=== PATIENT | male | born 1960 | race African-American/Black ===

== ENCOUNTER 2018-05-24 12:25 | Emergency (ER) | payer MEDICAID ==
[~2018-05-24] VITALS: Ht 167.6 cm; Wt 121.0 kg
[~2018-05-24 12:25] MED LIST: ACET-3161; CELEBREX; GABAPENTIN; GEODON; GLUCOPHAGE; INSASP; LASIX; PROZAC; TRAZODONE; VISTARIL
[2018-05-24] MEDS ORDERED: SODIUM CHLORIDE 0.9% 1,000 ML IV ONE (12:56)
[2018-05-24 13:25] LABS: BASOPHILS % 0.5 % (0.0-2.0); EOSINOPHILS % 3.4 % (0.0-5.0); HEMATOCRIT. 44.2 % (42.0-52.0); HEMOGLOBIN. 15.3 g/dL (14.0-18.0); LYMPHOCYTES % 26.7 % (20.0-50.0); MEAN CORPUSCULAR HEMOGLOBIN 30.5 pg (28.0-32.0); MEAN CORPUSCULAR VOLUME 88.2 fL (80.0-94.0); MEAN PLATELET VOLUME 9.1 fl (7.4-10.4); MONOCYTES % 9.1 % (2.0-8.0); NEUTROPHILS % 60.3 % (40.0-76.0); PLATELET 172 x1000/uL (130-400); RED BLOOD CELL COUNT 5.01 mill/uL (4.7-6.1); RED CELL DISTRIBUTION WIDTH 14.1 % (11.6-14.6)
[2018-05-24 13:31] LABS: CHLORIDE 97 mEq/L (98-107)
[2018-05-24 13:37] LABS: BETA HYDROXYBUTYRATE 0.1 mMol/L (0.0-0.3)
[2018-05-24] MEDS ORDERED: POTASSIUM CHLORIDE 20MEQ TABLET SR PO ONE (15:15)
[2018-05-24] MEDS ORDERED: POTASSIUM CHLORIDE 20MEQ TABLET SR PO NR (15:30)
[2018-05-24 17:10] VITALS: BP 133/67
== END 2018-05-24 18:04 | disposition home or self-care (01) ==
LOC: ER 12:25
DX: R22.42 Localized swelling, mass and lump, left lower limb (principal); R73.9 Hyperglycemia, unspecified; Z88.0 Allergy status to penicillin; Z79.899 Other long term (current) drug therapy
CPT/HCPCS: 36415; 80053; 82010; 82962; 85025; 93970; 99285; J7030

== ENCOUNTER 2018-12-31 14:28 | Inpatient (IN) | payer MEDICAID ==
[~2018-12-31] VITALS: Ht 177.8 cm; Wt 126.1 kg
[2018-12-31] MEDS ORDERED: CLINDAMYCIN 600 MG in DEXTROSE 5% WATER 50 ML IV ONE (16:00)
[2018-12-31 16:24] LABS: BASOPHILS % 0.4 % (0.0-2.0); EOSINOPHILS % 2.7 % (0.0-5.0); HEMATOCRIT. 41.1 % (42.0-52.0); HEMOGLOBIN. 14.3 g/dL (14.0-18.0); LYMPHOCYTES % 31.2 % (20.0-50.0); MEAN CORPUSCULAR HEMOGLOBIN 30.4 pg (28.0-32.0); MEAN CORPUSCULAR VOLUME 87.4 fL (80.0-94.0); MEAN PLATELET VOLUME 8.3 fl (7.4-10.4); NEUTROPHILS % 57.7 % (40.0-76.0); PLATELET 168 x1000/uL (130-400); RED BLOOD CELL COUNT 4.71 mill/uL (4.7-6.1); RED CELL DISTRIBUTION WIDTH 13.5 % (11.6-14.6)
[2018-12-31 16:30] LABS: CHLORIDE 104 mEq/L (98-107)
[2018-12-31] MEDS ORDERED: ZOLPIDEM TARTRATE 5MG TABLET PO PRN (19:45)
[2018-12-31] MEDS ORDERED: ONDANSETRON HCL 4MG/2ML INJ IV PRN (19:45)
[2018-12-31] MEDS ORDERED: CLONIDINE 0.1MG TABLET PO PRN (19:45)
[2018-12-31] MEDS ORDERED: DEXTROSE 50% WATER 50ML SYRINGE IV PRN (19:45)
[2018-12-31 21:15] VITALS: BP 150/90
[2018-12-31 21:45] VITALS: BP 150/90
[2018-12-31] MEDS ORDERED: INSULIN GLARGINE UD 100 UNITS/ML SYR SUBCUT SCH ×2 (22:00→23:00)
[2018-12-31] MEDS: INSULIN LISPRO 100 UNITS/ML SUBCUT SCH (22:00)
[2018-12-31] MEDS: BLOOD SUGAR DIAGNOSTIC STRIP TEST SCH (22:00)
[2019-01-01] VITALS: BP 126/81
[2019-01-01] MEDS: CLINDAMYCIN 600 MG in SODIUM CHLORIDE 0.9% 50 ML IV SCH ×2 (01:00→01:33)
[2019-01-01 04:00] VITALS: BP 118/73
[2019-01-01 06:28] LABS: BASOPHILS % 0.2 % (0.0-2.0); EOSINOPHILS % 3.3 % (0.0-5.0); HEMATOCRIT. 39.2 % (42.0-52.0); HEMOGLOBIN. 13.5 g/dL (14.0-18.0); LYMPHOCYTES % 35.7 % (20.0-50.0); MEAN CORPUSCULAR HEMOGLOBIN 30.4 pg (28.0-32.0); MEAN CORPUSCULAR VOLUME 88.2 fL (80.0-94.0); MEAN PLATELET VOLUME 8.3 fl (7.4-10.4); MONOCYTES % 8.2 % (2.0-8.0); NEUTROPHILS % 52.6 % (40.0-76.0); PLATELET 160 x1000/uL (130-400); RED BLOOD CELL COUNT 4.45 mill/uL (4.7-6.1); RED CELL DISTRIBUTION WIDTH 13.4 % (11.6-14.6)
[2019-01-01 06:46] LABS: CHLORIDE 105 mEq/L (98-107)
[2019-01-01] MEDS: GABAPENTIN 300MG CAPSULE PO SCH ×3 (07:33→21:31)
[2019-01-01] MEDS: BLOOD SUGAR DIAGNOSTIC STRIP TEST SCH ×4 (07:38→21:30)
[2019-01-01] MEDS ORDERED: HYDR50CA MT (07:50)
[2019-01-01] MEDS ORDERED: TRAZ150T78 MT (07:50)
[2019-01-01] MEDS ORDERED: VICTOZA (07:50)
[2019-01-01] MEDS ORDERED: NAPR500T7 PO (07:50)
[2019-01-01] MEDS ORDERED: FURO40TA5 MT (07:50)
[2019-01-01] MEDS ORDERED: FERR325T6 MT (07:50)
[2019-01-01] MEDS ORDERED: POLY17PO3 MT (07:50)
[2019-01-01] MEDS ORDERED: PREG75CA PO (07:50)
[2019-01-01] MEDS ORDERED: ZIPR40CA2 PO (07:50)
[2019-01-01] MEDS ORDERED: METF-416 PO (07:50)
[2019-01-01] MEDS ORDERED: LOSA1TAB40 PO (07:50)
[2019-01-01] MEDS ORDERED: FLUO40CA49 MT (07:50)
[2019-01-01 08:00] VITALS: BP 151/88
[2019-01-01] MEDS: INSULIN LISPRO 100 UNITS/ML SUBCUT SCH ×3 (08:42→18:10)
[2019-01-01] MEDS: CLINDAMYCIN 600MG PREMIX 50 ML IV SCH ×3 (08:58→23:52)
[2019-01-01 11:27] VITALS: BP 126/74
[2019-01-01 15:33] VITALS: BP 131/79
[2019-01-01 20:00] VITALS: BP 135/79
[2019-01-01] MEDS: INSULIN GLARGINE UD 100 UNITS/ML SYR SUBCUT SCH (21:32)
[2019-01-02] VITALS: BP 120/68
[2019-01-02] MEDS: INSULIN LISPRO 100 UNITS/ML SUBCUT SCH ×5 (00:03→21:05)
[2019-01-02 04:00] VITALS: BP 143/60
[2019-01-02] MEDS: GABAPENTIN 300MG CAPSULE PO SCH ×3 (06:24→21:04)
[2019-01-02] MEDS: BLOOD SUGAR DIAGNOSTIC STRIP TEST SCH ×4 (06:24→20:47)
[2019-01-02 08:00] VITALS: BP 107/62
[2019-01-02] MEDS: ACETAMINOPHEN 325MG TABLET PO PRN ×2 (08:09→11:16)
[2019-01-02] MEDS: CLINDAMYCIN 600MG PREMIX 50 ML IV SCH ×3 (08:12→23:41)
[2019-01-02] MEDS: INSULIN GLARGINE UD 100 UNITS/ML SYR SUBCUT SCH ×2 (11:12→21:27)
[2019-01-02 11:54] VITALS: BP 140/74
[2019-01-02 16:00] VITALS: BP 149/90
[2019-01-02 20:00] VITALS: BP 128/70
[2019-01-03] VITALS: BP 133/64
[2019-01-03 04:00] VITALS: BP 138/68
[2019-01-03] MEDS: BLOOD SUGAR DIAGNOSTIC STRIP TEST SCH ×3 (06:36→17:50)
[2019-01-03] MEDS: GABAPENTIN 300MG CAPSULE PO SCH ×2 (06:36→14:46)
[2019-01-03 07:07] LABS: CHLORIDE 110 mEq/L (98-107)
[2019-01-03 07:57] LABS: BASOPHILS % 0.2 % (0.0-2.0); EOSINOPHILS % 2.7 % (0.0-5.0); HEMOGLOBIN. 13.2 g/dL (14.0-18.0); LYMPHOCYTES % 36.4 % (20.0-50.0); MEAN CORPUSCULAR HEMOGLOBIN 30.1 pg (28.0-32.0); MEAN CORPUSCULAR VOLUME 89.2 fL (80.0-94.0); MEAN PLATELET VOLUME 8.8 fl (7.4-10.4); MONOCYTES % 8.1 % (2.0-8.0); NEUTROPHILS % 52.6 % (40.0-76.0); PLATELET 147 x1000/uL (130-400); RED BLOOD CELL COUNT 4.37 mill/uL (4.7-6.1); RED CELL DISTRIBUTION WIDTH 13.6 % (11.6-14.6)
[2019-01-03] MEDS: CLINDAMYCIN 600MG PREMIX 50 ML IV SCH (07:57)
[2019-01-03 08:00] VITALS: BP 124/78
[2019-01-03] MEDS: INSULIN LISPRO 100 UNITS/ML SUBCUT SCH ×3 (08:15→17:56)
[2019-01-03] MEDS: INSULIN GLARGINE UD 100 UNITS/ML SYR SUBCUT SCH (09:26)
[2019-01-03 12:00] VITALS: BP 165/86
[2019-01-03] MEDS ORDERED: SODIUM BICARBONATE 4% (2.4MEQ) 5ML VIAL IV ONE (13:00)
[2019-01-03] MEDS ORDERED: LIDOCAINE HCL 1% 20ML VIAL (Pyxis) INJ ONE (13:01)
[2019-01-03 14:23] VITALS: BP 165/86
[2019-01-03] MEDS ORDERED: DIPHENHYDRAMINE 50MG/ML VIAL IV PRN (15:45)
[2019-01-03 16:00] VITALS: BP 138/78
[2019-01-03] MEDS ORDERED: CEFTRIAXONE 2 G in DEXTROSE 5% WATER 50 ML IV SCH (17:00)
[2019-01-03] MEDS ORDERED: INSULIN GLARGINE UD 100 UNITS/ML SYR SUBCUT SCH (22:00)
[2019-01-04] MEDS ORDERED: CLINDAMYCIN 600 MG in DEXTROSE 5% WATER 50 ML IV SCH ×2
== END 2019-01-03 21:20 | disposition home health service (06) | DRG 317 ==
LOC: ER 14:28 → 6EST 18:26 → EDBEDREQ 18:31 → ENRESERV 20:28
PROVIDERS: ADMIT Internal Medicine; ATTEND Internal Medicine
PROC: 0LBV0ZZ Excision of Right Foot Tendon, Open Approach (ICD-10-PCS; principal; 2019-01-03)
PROC: 02HV33Z Insertion of Infusion Device into Superior Vena Cava, Percutaneous Approach (ICD-10-PCS; 2019-01-03)
PROC: B548ZZA Ultrasonography of Superior Vena Cava, Guidance (ICD-10-PCS; 2019-01-03)
PROC: B5181ZA Fluoroscopy of Superior Vena Cava using Low Osmolar Contrast, Guidance (ICD-10-PCS; 2019-01-03)
DX: E11.69 Type 2 diabetes mellitus with other specified complication (principal); M86.8X7 Other osteomyelitis, ankle and foot; E11.22 Type 2 diabetes mellitus with diabetic chronic kidney disease; E11.621 Type 2 diabetes mellitus with foot ulcer; E11.40 Type 2 diabetes mellitus with diabetic neuropathy, unspecified; E11.51 Type 2 diabetes mellitus with diabetic peripheral angiopathy without gangrene; E11.65 Type 2 diabetes mellitus with hyperglycemia; F32.9 Major depressive disorder, single episode, unspecified; L97.516 Non-pressure chronic ulcer of other part of right foot with bone involvement without evidence of necrosis; I12.9 Hypertensive chronic kidney disease with stage 1 through stage 4 chronic kidney disease, or unspecified chronic kidney disease; N18.2 Chronic kidney disease, stage 2 (mild); E66.01 Morbid (severe) obesity due to excess calories; Z87.891 Personal history of nicotine dependence; Z88.0 Allergy status to penicillin; Z79.4 Long term (current) use of insulin; Z79.899 Other long term (current) drug therapy; Z71.3 Dietary counseling and surveillance; Z68.39 Body mass index [BMI] 39.0-39.9, adult
CPT/HCPCS: 36415; 36569; 36573; 73630; 73721; 80048; 82962; 83036; 87070; 87077; 87186; 93923; 93970; 96365; 96367; 96372; 99285; C1725; J0696; J1815; J3490; J7040; J7060

== ENCOUNTER 2020-01-09 12:48 | Inpatient (IN) | payer MEDICAID ==
[~2020-01-09] VITALS: Ht 175.3 cm; Wt 117.9 kg
[~2020-01-09 12:48] MED LIST changes: +FERR325T6 MT; +FLUO40CA49 MT; +FURO40TA5 MT; +HYDR50CA MT; +LOSA1TAB40 PO; +METF-416 PO; +NAPR500T7 PO; +POLY17PO3 MT; +PREG75CA PO; +TRAZ150T78 MT; +VICTOZA; +ZIPR40CA2 PO
[2020-01-09] MEDS ORDERED: SODIUM CHLORIDE 0.9% 1,000 ML IV ONE (13:50)
[2020-01-09 14:12] LABS: BASOPHILS % 0.2 % (0.0-2.0); EOSINOPHILS % 1.4 % (0.0-5.0); HEMATOCRIT. 38.4 % (42.0-52.0); HEMOGLOBIN. 13.3 g/dL (14.0-18.0); LYMPHOCYTES % 22.3 % (20.0-50.0); MEAN CORPUSCULAR HEMOGLOBIN 30.1 pg (28.0-32.0); MEAN PLATELET VOLUME 8.4 fl (7.4-10.4); MONOCYTES % 6.8 % (2.0-8.0); NEUTROPHILS % 69.3 % (40.0-76.0); PLATELET 262 x1000/uL (130-400); RED BLOOD CELL COUNT 4.41 mill/uL (4.7-6.1); RED CELL DISTRIBUTION WIDTH 14.3 % (11.6-14.6)
[2020-01-09 14:19] LABS: CHLORIDE 99 mEq/L (98-107)
[2020-01-09] MEDS: VANCOMYCIN 1 G PREMIX 200 ML IV SCH (14:24)
[2020-01-09 14:29] LABS: PARTIAL THROMBOPLASTIN TIME 43.4 sec (23.4-31.0)
[2020-01-10] MEDS ORDERED: DEXTROSE 50% WATER 50ML SYRINGE IV PRN (12:45)
[2020-01-10] MEDS ORDERED: ONDANSETRON HCL 4MG/2ML INJ IV PRN (12:45)
[2020-01-10] MEDS ORDERED: ACETAMINOPHEN 325MG TABLET PO PRN (12:45)
[2020-01-10] MEDS ORDERED: BLOOD SUGAR DIAGNOSTIC STRIP TEST SCH (13:00)
[2020-01-10] MEDS: VANCOMYCIN 1 G PREMIX 200 ML IV SCH (14:00)
[2020-01-10] MEDS: BLOOD SUGAR DIAGNOSTIC STRIP TEST SCH ×3 (15:39→21:01)
[2020-01-10] MEDS: INSULIN LISPRO 100 UNITS/ML SUBCUT SCH ×2 (15:40→18:20)
[2020-01-10 21:50] VITALS: BP 123/79
[2020-01-11] VITALS: BP 131/71
[2020-01-11] MEDS ORDERED: VANCOMYCIN 1500MG in DEXTROSE 5% WATER 250ML IV SCH ×2
[2020-01-11 04:00] VITALS: BP 117/73
[2020-01-11] MEDS: BLOOD SUGAR DIAGNOSTIC STRIP TEST SCH ×4 (06:29→17:39)
[2020-01-11 08:00] VITALS: BP 121/70
[2020-01-11] MEDS: INSULIN LISPRO 100 UNITS/ML SUBCUT SCH ×4 (09:46→21:55)
[2020-01-11 12:00] VITALS: BP 118/71
[2020-01-11] MEDS ORDERED: VANCOMYCIN 750 MG PREMIX 150 ML IV SCH (12:00)
[2020-01-11] MEDS ORDERED: VANCOMYCIN 1 G PREMIX 200 ML IV SCH ×2 (12:00→15:30)
[2020-01-11] MEDS: INSULIN GLARGINE UD 100 UNITS/ML SYR SUBCUT SCH ×2 (14:03→21:59)
[2020-01-11 20:00] VITALS: BP 134/84
[2020-01-12] VITALS: BP 105/61
[2020-01-12] MEDS: CLINDAMYCIN 300 MG in DEXTROSE 5% WATER 50 ML IV SCH ×2 (02:31→09:24)
[2020-01-12 04:00] VITALS: BP 115/63
[2020-01-12] MEDS: BLOOD SUGAR DIAGNOSTIC STRIP TEST SCH ×2 (06:42→12:22)
[2020-01-12 06:44] LABS: CHLORIDE 105 mEq/L (98-107)
[2020-01-12] MEDS: INSULIN LISPRO 100 UNITS/ML SUBCUT SCH ×2 (07:41→12:22)
[2020-01-12 08:00] VITALS: BP 130/73
[2020-01-12] MEDS: INSULIN GLARGINE UD 100 UNITS/ML SYR SUBCUT SCH (10:00)
[2020-01-12] MEDS ORDERED: IODIXANOL 320MG/ML 100 ML BOTTLE IV ONE (12:13)
[2020-01-12] MEDS ORDERED: LIDOCAINE HCL 1% 20ML VIAL (Pyxis) INJ ONE (12:13)
[2020-01-12] MEDS ORDERED: MIDAZOLAM HCL 2 MG/2 ML VIAL ONE (12:28)
[2020-01-12] MEDS ORDERED: FENTANYL CITRATE/PF 50MCG/ML 2ML VIAL ONE (12:28)
[2020-01-12 13:00] VITALS: BP 123/78
[2020-01-12] MEDS ORDERED: CLIN300C11 MT (13:49)
== END 2020-01-12 17:13 | disposition home or self-care (01) | DRG 197 ==
LOC: ER 12:48 → ENRESERV 01-10 20:28 → 6EST 01-10 21:37
PROVIDERS: ADMIT Internal Medicine; ATTEND Internal Medicine
PROC: B41G1ZZ Fluoroscopy of Left Lower Extremity Arteries using Low Osmolar Contrast (ICD-10-PCS; principal; 2020-01-12)
PROC: B41F1ZZ Fluoroscopy of Right Lower Extremity Arteries using Low Osmolar Contrast (ICD-10-PCS; 2020-01-12)
DX: E11.52 Type 2 diabetes mellitus with diabetic peripheral angiopathy with gangrene (principal); I96 Gangrene, not elsewhere classified; E11.22 Type 2 diabetes mellitus with diabetic chronic kidney disease; E11.40 Type 2 diabetes mellitus with diabetic neuropathy, unspecified; E11.621 Type 2 diabetes mellitus with foot ulcer; L97.529 Non-pressure chronic ulcer of other part of left foot with unspecified severity; E44.1 Mild protein-calorie malnutrition; E66.9 Obesity, unspecified; E87.1 Hypo-osmolality and hyponatremia; L03.032 Cellulitis of left toe; Z20.828 Contact with and (suspected) exposure to other viral communicable diseases; I12.9 Hypertensive chronic kidney disease with stage 1 through stage 4 chronic kidney disease, or unspecified chronic kidney disease; M20.5X1 Other deformities of toe(s) (acquired), right foot; N18.9 Chronic kidney disease, unspecified; Z79.4 Long term (current) use of insulin; Z68.38 Body mass index [BMI] 38.0-38.9, adult; Z71.3 Dietary counseling and surveillance; Z88.0 Allergy status to penicillin; Z79.84 Long term (current) use of oral hypoglycemic drugs; Z79.899 Other long term (current) drug therapy; Z79.1 Long term (current) use of non-steroidal anti-inflammatories (NSAID)
CPT/HCPCS: 36415; 71045; 73630; 75710; 80048; 80053; 82962; 83880; 84484; 85025; 87635; 93005; 93922; 96365; 96372; 99285; C1760; C1769; C1893; J1644; J1815; J2250; J3010; J3370; J3490; J7030; J7060; Q9967; U0003

== ENCOUNTER 2020-02-28 16:26 | Inpatient (IN) | payer MEDICAID ==
[~2020-02-28] VITALS: Ht 177.8 cm; Wt 118.8 kg
[~2020-02-28 16:26] MED LIST changes: +CLIN300C11 MT
[2020-02-28] MEDS ORDERED: SODIUM CHLORIDE 0.9% 1,000 ML IV ONE (18:56)
[2020-02-28] MEDS ORDERED: ONDANSETRON HCL 4MG/2ML INJ IV STA (18:56)
[2020-02-28] MEDS ORDERED: MORPHINE SULFATE 4 MG/ML CPJ (NOT FOR IM USE) IV STA (18:56)
[2020-02-28] MEDS ORDERED: VANCOMYCIN 1 G PREMIX 200 ML IV ONE (19:00)
[2020-02-28] MEDS ORDERED: LEVOFLOXACIN 500MG PREMIX 100 ML IV ONE (19:00)
[2020-02-28] MEDS ORDERED: LIDOCAINE HCL 1% 20ML VIAL (Pyxis) INJ ONE (19:21)
[2020-02-28] MEDS ORDERED: BUPIVACAINE HCL/PF 0.5% (5MG/ML) 10ML ONE ×2 (19:21→19:22)
[2020-02-28] MEDS ORDERED: BACITRACIN 50,000 UNITS/VIAL ONE (19:22)
[2020-02-28 19:38] LABS: BASOPHILS % 0.3 % (0.0-2.0); EOSINOPHILS % 0.5 % (0.0-5.0); HEMATOCRIT. 39.5 % (42.0-52.0); HEMOGLOBIN. 13.6 g/dL (14.0-18.0); LYMPHOCYTES % 13.3 % (20.0-50.0); MEAN CORPUSCULAR HEMOGLOBIN 29.7 pg (28.0-32.0); MEAN CORPUSCULAR VOLUME 86.5 fL (80.0-94.0); MEAN PLATELET VOLUME 8.8 fl (7.4-10.4); MONOCYTES % 7.7 % (2.0-8.0); NEUTROPHILS % 78.2 % (40.0-76.0); PLATELET 247 x1000/uL (130-400); RED BLOOD CELL COUNT 4.57 mill/uL (4.7-6.1); RED CELL DISTRIBUTION WIDTH 15.5 % (11.6-14.6)
[2020-02-28 19:43] LABS: CHLORIDE 103 mEq/L (98-107)
[2020-02-28 19:46] LABS: PARTIAL THROMBOPLASTIN TIME 47.3 sec (23.4-31.0); PROTHROMBIN TIME 10.9 sec (9.6-11.0)
[2020-02-28 21:30] VITALS: BP 111/74
[2020-02-28] MEDS ORDERED: MIDAZOLAM HCL 2 MG/2 ML VIAL ONE (22:34)
[2020-02-28] MEDS ORDERED: FENTANYL CITRATE/PF 50MCG/ML 2ML VIAL ONE (22:34)
[2020-02-28] MEDS ORDERED: PROPOFOL 200MG/20ML VIAL IV ONE (22:34)
[2020-02-28] MEDS ORDERED: LIDOCAINE HCL/PF 1% 10 MG/ML 5ML VIAL ONE (22:35)
[2020-02-28] MEDS ORDERED: IPRATROPIUM/ALBUTEROL 0.5-3(2.5)MG/3ML NEB NEB PRN (23:15)
[2020-02-28] MEDS ORDERED: MAGNESIUM/ALUMINUM HYDROXIDE/SIMETHICONE 30ML UDC PO PRN (23:15)
[2020-02-28] MEDS ORDERED: ONDANSETRON HCL 4MG/2ML INJ IV PRN (23:15)
[2020-02-28] MEDS ORDERED: DOCUSATE SODIUM 100MG CAPSULE PO PRN (23:15)
[2020-02-28] MEDS ORDERED: CLONIDINE 0.1MG TABLET PO PRN (23:15)
[2020-02-29] VITALS (7 sets, daily range): BP systolic 109–120; BP diastolic 60–76
[2020-02-29] MEDS ORDERED: DEXTROSE 50% WATER 50ML SYRINGE IV PRN (02:45)
[2020-02-29] MEDS ORDERED: VANCOMYCIN 1 G PREMIX 200 ML IV SCH (06:00)
[2020-02-29 06:18] LABS: BASOPHILS % 0.2 % (0.0-2.0); EOSINOPHILS % 0.7 % (0.0-5.0); HEMATOCRIT. 32.6 % (42.0-52.0); HEMOGLOBIN. 11.6 g/dL (14.0-18.0); LYMPHOCYTES % 21.2 % (20.0-50.0); MEAN CORPUSCULAR HEMOGLOBIN 30.7 pg (28.0-32.0); MEAN CORPUSCULAR VOLUME 86.4 fL (80.0-94.0); MEAN PLATELET VOLUME 8.6 fl (7.4-10.4); NEUTROPHILS % 68.9 % (40.0-76.0); PLATELET 179 x1000/uL (130-400); RED BLOOD CELL COUNT 3.77 mill/uL (4.7-6.1); RED CELL DISTRIBUTION WIDTH 15.5 % (11.6-14.6)
[2020-02-29 06:32] LABS: CHLORIDE 106 mEq/L (98-107)
[2020-02-29] MEDS: BLOOD SUGAR DIAGNOSTIC STRIP TEST SCH ×4 (06:40→21:00)
[2020-02-29] MEDS: INSULIN LISPRO 100 UNITS/ML SUBCUT SCH ×4 (08:31→22:32)
[2020-02-29] MEDS: HEPARIN 5000 UNITS/ML VIAL SUBCUT SCH ×2 (09:02→21:20)
[2020-02-29] MEDS: ACETAMINOPHEN 325MG TABLET PO PRN (12:14)
[2020-02-29] MEDS: HYDROCODONE/ACETAMINOPHEN 5/325MG TABLET PO PRN (18:07)
[2020-02-29] MEDS ORDERED: LEVOFLOXACIN 500MG PREMIX 100 ML IV SCH (20:00)
[2020-02-29] MEDS: METRONIDAZOLE 500 MG PREMIX 100 ML IV SCH (21:19)
[2020-02-29] MEDS: CEFEPIME 1,000 MG in DEXTROSE 5% WATER 50 ML IV SCH (21:19)
[2020-02-29] MEDS: VANCOMYCIN 1250MG in DEXTROSE 5% WATER 250ML IV SCH (22:36)
[2020-03-01] VITALS: BP 122/75
[2020-03-01] MEDS: HYDROCODONE/ACETAMINOPHEN 5/325MG TABLET PO PRN (02:50)
[2020-03-01 04:00] VITALS: BP 128/50
[2020-03-01 05:40] LABS: CHLORIDE 107 mEq/L (98-107)
[2020-03-01] MEDS: METRONIDAZOLE 500 MG PREMIX 100 ML IV SCH ×3 (05:40→20:22)
[2020-03-01] MEDS: BLOOD SUGAR DIAGNOSTIC STRIP TEST SCH ×4 (05:50→20:45)
[2020-03-01] MEDS: INSULIN LISPRO 100 UNITS/ML SUBCUT SCH ×4 (07:50→20:57)
[2020-03-01 08:00] VITALS: BP 130/77
[2020-03-01] MEDS: HEPARIN 5000 UNITS/ML VIAL SUBCUT SCH (09:00)
[2020-03-01] MEDS: VANCOMYCIN 1250MG in DEXTROSE 5% WATER 250ML IV SCH ×2 (09:00→20:46)
[2020-03-01] MEDS: CEFEPIME 1,000 MG in DEXTROSE 5% WATER 50 ML IV SCH ×2 (09:16→20:22)
[2020-03-01] MEDS ORDERED: IOHEXOL-350 100 ML BOTTLE ONE (11:01)
[2020-03-01 11:44] VITALS: BP 116/72
[2020-03-01] MEDS ORDERED: SODIUM BICARBONATE 4% (2.4MEQ) 5ML VIAL IV ONE (13:32)
[2020-03-01] MEDS ORDERED: LIDOCAINE HCL 1% 20ML VIAL (Pyxis) INJ ONE (13:32)
[2020-03-01 16:00] VITALS: BP 119/70
[2020-03-01 20:00] VITALS: BP 129/68
[2020-03-02] VITALS: BP 125/73
[2020-03-02 04:00] VITALS: BP 132/79
[2020-03-02] MEDS: METRONIDAZOLE 500 MG PREMIX 100 ML IV SCH ×3 (04:33→20:52)
[2020-03-02] MEDS: BLOOD SUGAR DIAGNOSTIC STRIP TEST SCH ×4 (06:50→21:37)
[2020-03-02 07:53] LABS: CHLORIDE 107 mEq/L (98-107)
[2020-03-02 08:00] VITALS: BP 126/76
[2020-03-02 08:12] LABS: BASOPHILS % 0.3 % (0.0-2.0); EOSINOPHILS % 0.9 % (0.0-5.0); HEMATOCRIT. 33.2 % (42.0-52.0); HEMOGLOBIN. 11.7 g/dL (14.0-18.0); LYMPHOCYTES % 18.7 % (20.0-50.0); MEAN CORPUSCULAR HEMOGLOBIN 30.3 pg (28.0-32.0); MEAN CORPUSCULAR VOLUME 86.4 fL (80.0-94.0); MEAN PLATELET VOLUME 8.7 fl (7.4-10.4); MONOCYTES % 8.7 % (2.0-8.0); NEUTROPHILS % 71.4 % (40.0-76.0); PLATELET 208 x1000/uL (130-400); RED BLOOD CELL COUNT 3.84 mill/uL (4.7-6.1); RED CELL DISTRIBUTION WIDTH 15.9 % (11.6-14.6)
[2020-03-02] MEDS: INSULIN LISPRO 100 UNITS/ML SUBCUT SCH ×4 (08:51→21:37)
[2020-03-02] MEDS: VANCOMYCIN 1250MG in DEXTROSE 5% WATER 250ML IV SCH ×2 (08:56→23:56)
[2020-03-02] MEDS: CEFEPIME 1,000 MG in DEXTROSE 5% WATER 50 ML IV SCH ×2 (08:56→20:51)
[2020-03-02 12:00] VITALS: BP 139/86
[2020-03-02 16:00] VITALS: BP 124/69
[2020-03-02 20:00] VITALS: BP 123/70
[2020-03-03] VITALS: BP 122/51
[2020-03-03 04:00] VITALS: BP 143/71
[2020-03-03] MEDS: METRONIDAZOLE 500 MG PREMIX 100 ML IV SCH ×3 (04:05→20:17)
[2020-03-03 06:34] LABS: CHLORIDE 106 mEq/L (98-107)
[2020-03-03] MEDS: BLOOD SUGAR DIAGNOSTIC STRIP TEST SCH ×4 (07:28→20:28)
[2020-03-03] MEDS: INSULIN LISPRO 100 UNITS/ML SUBCUT SCH ×4 (07:50→20:28)
[2020-03-03 08:00] VITALS: BP 135/58
[2020-03-03] MEDS: CEFEPIME 1,000 MG in DEXTROSE 5% WATER 50 ML IV SCH ×2 (08:59→20:27)
[2020-03-03] MEDS: VANCOMYCIN 1250MG in DEXTROSE 5% WATER 250ML IV SCH ×2 (09:00→22:44)
[2020-03-03 12:00] VITALS: BP 132/61
[2020-03-03] MEDS: MULTIVITAMINS,THER W-MINERALS TABLET PO SCH (12:23)
[2020-03-03 16:00] VITALS: BP 128/55
[2020-03-03 20:00] VITALS: BP 121/69
[2020-03-04] VITALS: BP 143/83
[2020-03-04 04:00] VITALS: BP 122/70
[2020-03-04] MEDS: METRONIDAZOLE 500 MG PREMIX 100 ML IV SCH ×3 (04:24→20:06)
[2020-03-04] MEDS: BLOOD SUGAR DIAGNOSTIC STRIP TEST SCH ×4 (06:48→20:52)
[2020-03-04 08:00] VITALS: BP 134/79
[2020-03-04] MEDS: CEFEPIME 1,000 MG in DEXTROSE 5% WATER 50 ML IV SCH ×2 (08:30→20:06)
[2020-03-04] MEDS: MULTIVITAMINS,THER W-MINERALS TABLET PO SCH (08:30)
[2020-03-04] MEDS: INSULIN LISPRO 100 UNITS/ML SUBCUT SCH ×4 (08:38→20:52)
[2020-03-04] MEDS: VANCOMYCIN 1250MG in DEXTROSE 5% WATER 250ML IV SCH (09:00)
[2020-03-04 12:00] VITALS: BP 138/82
[2020-03-04] MEDS ORDERED: VANCOMYCIN 1250MG in DEXTROSE 5% WATER 250ML IV SCH (13:00)
[2020-03-04] MEDS: HYDROCODONE/ACETAMINOPHEN 5/325MG TABLET PO PRN (14:29)
[2020-03-04 16:00] VITALS: BP 115/73
[2020-03-04 20:00] VITALS: BP 116/76
[2020-03-04] MEDS: CEFAZOLIN 2,000 MG in DEXT 5% WATER 100 ML IV SCH (23:01)
[2020-03-04] MEDS: LEVOFLOXACIN 750MG PREMIX 150 ML IV SCH (23:45)
[2020-03-05] VITALS: BP 127/94
[2020-03-05 04:00] VITALS: BP 129/84
[2020-03-05] MEDS: CEFAZOLIN 2,000 MG in DEXT 5% WATER 100 ML IV SCH ×3 (06:03→22:26)
[2020-03-05] MEDS: BLOOD SUGAR DIAGNOSTIC STRIP TEST SCH ×4 (06:55→20:17)
[2020-03-05 08:00] VITALS: BP 138/81
[2020-03-05] MEDS: INSULIN LISPRO 100 UNITS/ML SUBCUT SCH ×4 (08:44→21:37)
[2020-03-05] MEDS: MULTIVITAMINS,THER W-MINERALS TABLET PO SCH (08:58)
[2020-03-05 12:00] VITALS: BP 151/99
[2020-03-05 16:00] VITALS: BP 132/83
[2020-03-05 20:00] VITALS: BP 125/66
[2020-03-05] MEDS: ACETAMINOPHEN 325MG TABLET PO PRN (20:13)
[2020-03-05] MEDS: LEVOFLOXACIN 750MG PREMIX 150 ML IV SCH (22:50)
[2020-03-06] VITALS (7 sets, daily range): BP systolic 110–149; BP diastolic 70–84
[2020-03-06] MEDS: CEFAZOLIN 2,000 MG in DEXT 5% WATER 100 ML IV SCH ×2 (06:06→14:45)
[2020-03-06] MEDS: BLOOD SUGAR DIAGNOSTIC STRIP TEST SCH ×2 (06:21→12:51)
[2020-03-06] MEDS: INSULIN LISPRO 100 UNITS/ML SUBCUT SCH ×2 (08:52→13:07)
[2020-03-06] MEDS: MULTIVITAMINS,THER W-MINERALS TABLET PO SCH (08:53)
[2020-03-06] MEDS ORDERED: LEVO750T46 MT (19:34)
== END 2020-03-06 21:18 | disposition home health service (06) | DRG 314 ==
LOC: ER 16:26 → EDBEDREQ 19:01 → EDBEDREQTM 19:06 → EDBEDREQ 19:06 → EDBEDREQTM 19:46 → 6EST 19:46 → EDBEDREQ 19:46 → ENRESERV 21:05
PROVIDERS: ADMIT Internal Medicine; ATTEND Internal Medicine
PROC: 0Y6Q0Z1 Detachment at Left 1st Toe, High, Open Approach (ICD-10-PCS; principal; 2020-02-29)
PROC: 02HV33Z Insertion of Infusion Device into Superior Vena Cava, Percutaneous Approach (ICD-10-PCS; 2020-03-01)
PROC: B548ZZA Ultrasonography of Superior Vena Cava, Guidance (ICD-10-PCS; 2020-03-01)
PROC: B5181ZA Fluoroscopy of Superior Vena Cava using Low Osmolar Contrast, Guidance (ICD-10-PCS; 2020-03-01)
DX: E11.52 Type 2 diabetes mellitus with diabetic peripheral angiopathy with gangrene (principal); I96 Gangrene, not elsewhere classified; E11.22 Type 2 diabetes mellitus with diabetic chronic kidney disease; M86.172 Other acute osteomyelitis, left ankle and foot; E66.01 Morbid (severe) obesity due to excess calories; L03.116 Cellulitis of left lower limb; E11.69 Type 2 diabetes mellitus with other specified complication; E11.40 Type 2 diabetes mellitus with diabetic neuropathy, unspecified; E11.621 Type 2 diabetes mellitus with foot ulcer; L02.611 Cutaneous abscess of right foot; E11.65 Type 2 diabetes mellitus with hyperglycemia; N18.2 Chronic kidney disease, stage 2 (mild); I12.9 Hypertensive chronic kidney disease with stage 1 through stage 4 chronic kidney disease, or unspecified chronic kidney disease; L97.529 Non-pressure chronic ulcer of other part of left foot with unspecified severity; L97.519 Non-pressure chronic ulcer of other part of right foot with unspecified severity; K59.00 Constipation, unspecified; Z88.0 Allergy status to penicillin; Z79.899 Other long term (current) drug therapy; Z79.4 Long term (current) use of insulin; Z87.891 Personal history of nicotine dependence; Z68.37 Body mass index [BMI] 37.0-37.9, adult
CPT/HCPCS: 36415; 36573; 71045; 73630; 75635; 76937; 80048; 80053; 80061; 80202; 82962; 83036; 83605; 84145; 84443; 85025; 85651; 86140; 87070; 87075; 87077; 87186; 88304; 88305; 88311; 93005; 93923; 96365; 97022; 97161; 99285; C1725; C1769; C1887; C1892; J0690; J0692; J1644; J1815; J1956; J2250; J2270; J2405; J2704; J3010; J3370; J3490; J7030; J7060; Q9967

== ENCOUNTER 2022-08-04 21:06 | Inpatient (IN) | payer MEDICAID ==
[~2022-08-04] VITALS: Ht 177.8 cm; Wt 141.5 kg
[~2022-08-04 21:06] MED LIST changes: -CELEBREX; -CLIN300C11 MT; -FERR325T6 MT; -GABAPENTIN; -GEODON; -GLUCOPHAGE; -LASIX; +LEVO750T68 MT; -NAPR500T7 PO; -PROZAC; +TOPUD PO; -TRAZODONE; -VICTOZA; -VISTARIL
[2022-08-05] MEDS ORDERED: FUROSEMIDE 40MG/4ML VIAL IV ONE (00:30)
[2022-08-05 01:43] LABS: BASOPHILS % 0.4 % (0.0-2.0); EOSINOPHILS % 1.6 % (0.0-5.0); HEMATOCRIT. 37.6 % (42.0-52.0); HEMOGLOBIN. 12.2 g/dL (14.0-18.0); LYMPHOCYTES % 12.2 % (20.0-50.0); MEAN CORPUSCULAR HEMOGLOBIN 27.6 pg (28.0-32.0); MEAN PLATELET VOLUME 8.6 fl (7.4-10.4); MONOCYTES % 10.8 % (2.0-8.0); PLATELET 208 x1000/uL (130-400); RED BLOOD CELL COUNT 4.42 mill/uL (4.7-6.1); RED CELL DISTRIBUTION WIDTH 18.4 % (11.6-14.6)
[2022-08-05] MEDS ORDERED: ONDANSETRON HCL 4MG/2ML INJ IV PRN (10:00)
[2022-08-05 12:45] VITALS: BP 120/86
[2022-08-05 14:36] VITALS: BP 120/86
[2022-08-05] MEDS ORDERED: DEXTROSE 50% WATER 50ML SYRINGE IV PRN (15:45)
[2022-08-05 16:00] VITALS: BP 115/85
[2022-08-05 16:05] LABS: CHLORIDE 107 mEq/L (98-107)
[2022-08-05] MEDS: BLOOD SUGAR DIAGNOSTIC STRIP TEST SCH ×2 (17:10→21:33)
[2022-08-05] MEDS: FUROSEMIDE 40MG/4ML VIAL IVP SCH (18:08)
[2022-08-05] MEDS: ENOXAPARIN 30MG/0.3ML SYR SUBCUT SCH (18:09)
[2022-08-05] MEDS: INSULIN LISPRO 100 UNITS/ML SUBCUT SCH ×2 (18:36→18:54)
[2022-08-05 20:00] VITALS: BP 125/90
[2022-08-05] MEDS: ATORVASTATIN CALCIUM 40MG TABLET PO SCH (21:33)
[2022-08-05] MEDS: SACUBITRIL/VALSARTAN 24MG/26MG TABLET PO SCH (21:33)
[2022-08-06] VITALS: BP 111/77
[2022-08-06 04:00] VITALS: BP 113/81
[2022-08-06] MEDS: FUROSEMIDE 40MG/4ML VIAL IVP SCH (05:48)
[2022-08-06] MEDS: BLOOD SUGAR DIAGNOSTIC STRIP TEST SCH ×4 (05:48→21:00)
[2022-08-06] MEDS: ENOXAPARIN 30MG/0.3ML SYR SUBCUT SCH (05:48)
[2022-08-06] MEDS: INSULIN LISPRO 100 UNITS/ML SUBCUT SCH ×4 (05:51→21:49)
[2022-08-06 08:00] VITALS: BP 118/79
[2022-08-06 12:00] VITALS: BP 110/77
[2022-08-06] MEDS: SACUBITRIL/VALSARTAN 24MG/26MG TABLET PO SCH ×2 (12:13→21:41)
[2022-08-06 16:00] VITALS: BP 120/75
[2022-08-06] MEDS ORDERED: ENOXAPARIN 30MG/0.3ML SYR SUBCUT NR (18:00)
[2022-08-06] MEDS ORDERED: FUROSEMIDE 40MG/4ML VIAL IVP NR (18:00)
[2022-08-06 20:00] VITALS: BP 109/64
[2022-08-06 20:38] LABS: *AMPHETAMINES SCREEN URINE NEGATIVE (NEGATIVE); *BARBITURATES SCREEN URINE NEGATIVE (NEGATIVE); *BENZODIAZEPINES SCREEN URINE NEGATIVE (NEGATIVE); *COCAINE SCREEN URINE NEGATIVE (NEGATIVE); CANNABINOID URINE SCREEN NEGATIVE (NEGATIVE); METHADONE URINE SCREEN NEGATIVE (NEGATIVE); OPIATES URINE SCREEN NEGATIVE (NEGATIVE); PHENCYCLIDINE URINE SCREEN NEGATIVE (NEGATIVE)
[2022-08-06] MEDS: ATORVASTATIN CALCIUM 40MG TABLET PO SCH (21:41)
[2022-08-07] VITALS: BP 98/84
[2022-08-07 04:00] VITALS: BP 104/68
[2022-08-07] MEDS: BLOOD SUGAR DIAGNOSTIC STRIP TEST SCH ×4 (06:34→21:00)
[2022-08-07] MEDS: INSULIN LISPRO 100 UNITS/ML SUBCUT SCH ×4 (06:34→21:07)
[2022-08-07 06:59] LABS: EOSINOPHILS % 3.8 % (0.0-5.0); HEMATOCRIT. 33.4 % (42.0-52.0); HEMOGLOBIN. 11.2 g/dL (14.0-18.0); LYMPHOCYTES % 15.5 % (20.0-50.0); MEAN CORPUSCULAR HEMOGLOBIN 27.9 pg (28.0-32.0); MEAN PLATELET VOLUME 8.9 fl (7.4-10.4); MONOCYTES % 12.8 % (2.0-8.0); NEUTROPHILS % 66.9 % (40.0-76.0); PLATELET 175 x1000/uL (130-400); RED BLOOD CELL COUNT 4.03 mill/uL (4.7-6.1); RED CELL DISTRIBUTION WIDTH 18.3 % (11.6-14.6)
[2022-08-07] MEDS ORDERED: SODIUM CHLORIDE 0.45% 1,000 ML IV SCH (07:00)
[2022-08-07] MEDS: SACUBITRIL/VALSARTAN 24MG/26MG TABLET PO SCH ×2 (08:24→21:00)
[2022-08-07] MEDS ORDERED: HEPARIN 1000 UNITS/ML 10ML ONE (08:33)
[2022-08-07] MEDS ORDERED: IODIXANOL 320MG/ML 100 ML BOTTLE IV ONE (08:33)
[2022-08-07] MEDS ORDERED: ASPIRIN/SOD BICARB/CITRIC ACID 324MG TAB EFF ONE (08:33)
[2022-08-07] MEDS ORDERED: LIDOCAINE HCL/PF 1% 10 MG/ML 5ML VIAL ONE (09:05)
[2022-08-07] MEDS ORDERED: MIDAZOLAM HCL 2 MG/2 ML VIAL ONE (09:37)
[2022-08-07] MEDS ORDERED: FENTANYL CITRATE/PF 50MCG/ML 2ML VIAL ONE (09:38)
[2022-08-07] MEDS ORDERED: LIDOCAINE HCL/PF 2% 20MG/ML 5 ML/VIAL ONE (09:40)
[2022-08-07 11:20] LABS: CHLORIDE 108 mEq/L (98-107)
[2022-08-07 12:00] VITALS: BP 105/71
[2022-08-07] MEDS: ACETAMINOPHEN 325MG TABLET PO PRN ×2 (12:08→23:00)
[2022-08-07 12:22] LABS: BASOPHILS % 0.6 % (0.0-2.0); EOSINOPHILS % 3.1 % (0.0-5.0); HEMATOCRIT. 35.7 % (42.0-52.0); HEMOGLOBIN. 11.8 g/dL (14.0-18.0); LYMPHOCYTES % 11.5 % (20.0-50.0); MEAN CORPUSCULAR HEMOGLOBIN 27.8 pg (28.0-32.0); MEAN CORPUSCULAR VOLUME 84.2 fL (80.0-94.0); MEAN PLATELET VOLUME 8.8 fl (7.4-10.4); MONOCYTES % 11.8 % (2.0-8.0); PLATELET 171 x1000/uL (130-400); RED BLOOD CELL COUNT 4.24 mill/uL (4.7-6.1); RED CELL DISTRIBUTION WIDTH 18.4 % (11.6-14.6)
[2022-08-07] MEDS ORDERED: ENOXAPARIN 60MG/0.6ML SYR SUBCUT NR (13:00)
[2022-08-07 16:00] VITALS: BP 96/63
[2022-08-07 20:00] VITALS: BP 91/55
[2022-08-07] MEDS: ATORVASTATIN CALCIUM 40MG TABLET PO SCH (21:00)
[2022-08-08] VITALS (19 sets, daily range): BP systolic 53–154; BP diastolic 17–131
[2022-08-08] MEDS: SACUBITRIL/VALSARTAN 24MG/26MG TABLET PO SCH ×3 (00:21→21:00)
[2022-08-08 04:48] LABS: BASOPHILS % 0.8 % (0.0-2.0); EOSINOPHILS % 4.1 % (0.0-5.0); HEMATOCRIT. 36.4 % (42.0-52.0); HEMOGLOBIN. 11.4 g/dL (14.0-18.0); LYMPHOCYTES % 13.3 % (20.0-50.0); MEAN CORPUSCULAR HEMOGLOBIN 27.4 pg (28.0-32.0); MEAN CORPUSCULAR VOLUME 87.9 fL (80.0-94.0); MEAN PLATELET VOLUME 8.4 fl (7.4-10.4); MONOCYTES % 12.9 % (2.0-8.0); NEUTROPHILS % 68.9 % (40.0-76.0); PLATELET 138 x1000/uL (130-400); RED BLOOD CELL COUNT 4.14 mill/uL (4.7-6.1); RED CELL DISTRIBUTION WIDTH 18.4 % (11.6-14.6)
[2022-08-08] MEDS: BLOOD SUGAR DIAGNOSTIC STRIP TEST SCH ×4 (06:29→21:38)
[2022-08-08] MEDS: INSULIN LISPRO 100 UNITS/ML SUBCUT SCH ×5 (06:29→21:46)
[2022-08-08] MEDS: FUROSEMIDE 40MG TABLET PO SCH (08:15)
[2022-08-08] MEDS: SODIUM CHLORIDE 0.45% 1,000 ML IV SCH ×3 (08:16→21:20)
[2022-08-08] MEDS ORDERED: LIDOCAINE HCL 1% 20ML VIAL (Pyxis) INJ ONE (11:12)
[2022-08-08] MEDS ORDERED: HEPARIN 1000 UNITS/ML 10ML ONE (11:13)
[2022-08-08] MEDS ORDERED: IODIXANOL 320MG/ML 100 ML BOTTLE IV ONE (11:13)
[2022-08-08] MEDS ORDERED: ASPIRIN/SOD BICARB/CITRIC ACID 324MG TAB EFF ONE (11:32)
[2022-08-08] MEDS ORDERED: MIDAZOLAM HCL 2 MG/2 ML VIAL ONE (11:33)
[2022-08-08] MEDS ORDERED: FENTANYL CITRATE/PF 50MCG/ML 2ML VIAL ONE (11:34)
[2022-08-08] MEDS ORDERED: ATROPINE SULFATE 1MG/10ML SYR IV PRN (12:45)
[2022-08-08] MEDS ORDERED: MORPHINE SULFATE 2 MG/ML CPJ (NOT FOR IM USE) IV PRN (12:45)
[2022-08-08] MEDS ORDERED: ONDANSETRON HCL 4MG/2ML INJ IV PRN (12:45)
[2022-08-08] MEDS ORDERED: NITROGLYCERIN 0.4MG TABLET SL SL PRN (14:15)
[2022-08-08] MEDS ORDERED: EPOETIN ALFA-EPBX 10,000 UNIT/ML VIAL SUBCUT SCH (17:00)
[2022-08-08] MEDS: NITROGLYCERIN OINT 1GM/INCH UDPKT TD SCH (19:31)
[2022-08-08] MEDS ORDERED: ASCORBIC ACID 500 MG TABLET PO SCH (21:00)
[2022-08-08] MEDS ORDERED: DOCUSATE SODIUM 100MG CAPSULE PO SCH (21:00)
[2022-08-08] MEDS ORDERED: BISACODYL 10MG SUPP PR PRN (21:00)
[2022-08-08] MEDS: ALLOPURINOL 300 MG TABLET PO SCH (21:38)
[2022-08-08] MEDS: ENOXAPARIN 100MG/ML SYR SUBCUT SCH (21:38)
[2022-08-08] MEDS: ATORVASTATIN CALCIUM 40MG TABLET PO SCH (21:41)
[2022-08-09] VITALS (81 sets, daily range): BP systolic 68–151; BP diastolic 41–119
[2022-08-09 05:46] LABS: BASOPHILS % 0.6 % (0.0-2.0); EOSINOPHILS % 3.3 % (0.0-5.0); HEMATOCRIT. 33.7 % (42.0-52.0); HEMOGLOBIN. 11.2 g/dL (14.0-18.0); LYMPHOCYTES % 11.9 % (20.0-50.0); MEAN CORPUSCULAR HEMOGLOBIN 27.6 pg (28.0-32.0); MEAN CORPUSCULAR VOLUME 83.4 fL (80.0-94.0); MEAN PLATELET VOLUME 8.9 fl (7.4-10.4); MONOCYTES % 9.5 % (2.0-8.0); NEUTROPHILS % 74.7 % (40.0-76.0); PLATELET 183 x1000/uL (130-400); RED BLOOD CELL COUNT 4.04 mill/uL (4.7-6.1); RED CELL DISTRIBUTION WIDTH 17.8 % (11.6-14.6)
[2022-08-09] MEDS: NITROGLYCERIN OINT 1GM/INCH UDPKT TD SCH ×4 (06:00→17:11)
[2022-08-09] MEDS: ALLOPURINOL 300 MG TABLET PO SCH (06:34)
[2022-08-09] MEDS: SODIUM CHLORIDE 0.45% 1,000 ML IV SCH (06:34)
[2022-08-09 06:46] LABS: INR 1.2; PROTHROMBIN TIME 12.8 sec (9.6-11.0)
[2022-08-09] MEDS: BLOOD SUGAR DIAGNOSTIC STRIP TEST SCH ×4 (07:50→21:02)
[2022-08-09] MEDS: INSULIN LISPRO 100 UNITS/ML SUBCUT SCH ×4 (08:06→21:00)
[2022-08-09] MEDS: ASPIRIN 81MG EC TABLET PO SCH (08:15)
[2022-08-09] MEDS: SACUBITRIL/VALSARTAN 24MG/26MG TABLET PO SCH ×2 (08:16→21:02)
[2022-08-09] MEDS: FUROSEMIDE 40MG TABLET PO SCH (08:16)
[2022-08-09] MEDS: GUAIFENESIN-DM 200MG-20MG/10ML UDC PO PRN (09:59)
[2022-08-09] MEDS ORDERED: SODIUM POLYSTYRENE SULFONATE 15 G/60 ML BOT PO SCH (10:00)
[2022-08-09] MEDS: ENOXAPARIN 100MG/ML SYR SUBCUT SCH (21:01)
[2022-08-09] MEDS: ATORVASTATIN CALCIUM 40MG TABLET PO SCH (21:01)
[2022-08-09] MEDS: CARVEDILOL 3.125 MG TABLET PO SCH (21:02)
[2022-08-10] VITALS (81 sets, daily range): BP systolic 61–116; BP diastolic 27–83
[2022-08-10 05:29] LABS: BASOPHILS % 0.4 % (0.0-2.0); EOSINOPHILS % 3.7 % (0.0-5.0); HEMATOCRIT. 31.4 % (42.0-52.0); HEMOGLOBIN. 10.5 g/dL (14.0-18.0); LYMPHOCYTES % 14.7 % (20.0-50.0); MEAN CORPUSCULAR HEMOGLOBIN 27.5 pg (28.0-32.0); MEAN CORPUSCULAR VOLUME 82.4 fL (80.0-94.0); MONOCYTES % 12.9 % (2.0-8.0); NEUTROPHILS % 68.3 % (40.0-76.0); PLATELET 165 x1000/uL (130-400); RED BLOOD CELL COUNT 3.81 mill/uL (4.7-6.1); RED CELL DISTRIBUTION WIDTH 17.8 % (11.6-14.6)
[2022-08-10] MEDS: NITROGLYCERIN OINT 1GM/INCH UDPKT TD SCH ×4 (06:00→17:38)
[2022-08-10] MEDS: BLOOD SUGAR DIAGNOSTIC STRIP TEST SCH ×4 (07:50→21:31)
[2022-08-10 07:56] LABS: VITAMIN B12 SERUM 943 pg/mL (211-911)
[2022-08-10] MEDS: INSULIN LISPRO 100 UNITS/ML SUBCUT SCH ×4 (08:02→21:00)
[2022-08-10] MEDS: FUROSEMIDE 40MG TABLET PO SCH (09:05)
[2022-08-10] MEDS: ASPIRIN 81MG EC TABLET PO SCH (09:05)
[2022-08-10] MEDS: CARVEDILOL 3.125 MG TABLET PO SCH ×2 (09:06→21:31)
[2022-08-10] MEDS: SACUBITRIL/VALSARTAN 24MG/26MG TABLET PO SCH ×2 (09:06→21:30)
[2022-08-10] MEDS ORDERED: FUROSEMIDE 40MG/4ML VIAL IVP SCH (10:00)
[2022-08-10] MEDS ORDERED: POTASSIUM CHLORIDE 20MEQ/PACKET PO NR (10:30)
[2022-08-10] MEDS: FERROUS SULFATE 300MG/5ML UDC PO SCH (17:38)
[2022-08-10 18:51] LABS: CLARITY URINE CLEAR (CLEAR); COLOR URINE DARK YELLOW (YELLOW); KETONES URINE TRACE (NEGATIVE); LEUKOCYTE ESTERASE URINE NEGATIVE (NEGATIVE); NITRITE URINE NEGATIVE (NEGATIVE); OCCULT BLOOD URINE NEGATIVE (NEGATIVE); PROTEIN URINE NEGATIVE (NEGATIVE); SPECIFIC GRAVITY URINE 1.016 (1.005-1.030)
[2022-08-10] MEDS: ENOXAPARIN 100MG/ML SYR SUBCUT SCH (20:00)
[2022-08-10] MEDS: ATORVASTATIN CALCIUM 40MG TABLET PO SCH (21:30)
[2022-08-11] VITALS (71 sets, daily range): BP systolic 81–128; BP diastolic 48–91
[2022-08-11 05:41] LABS: HEPATITIS B SURFACE ANTIGEN NEGATIVE
[2022-08-11] MEDS: NITROGLYCERIN OINT 1GM/INCH UDPKT TD SCH ×4 (06:00→18:30)
[2022-08-11] MEDS: INSULIN LISPRO 100 UNITS/ML SUBCUT SCH ×4 (08:20→21:34)
[2022-08-11] MEDS: BLOOD SUGAR DIAGNOSTIC STRIP TEST SCH ×4 (08:22→21:33)
[2022-08-11] MEDS: CARVEDILOL 3.125 MG TABLET PO SCH ×2 (09:00→21:33)
[2022-08-11] MEDS: SACUBITRIL/VALSARTAN 24MG/26MG TABLET PO SCH (09:00)
[2022-08-11] MEDS: FERROUS SULFATE 300MG/5ML UDC PO SCH ×2 (09:10→18:29)
[2022-08-11] MEDS: ASPIRIN 81MG EC TABLET PO SCH (09:11)
[2022-08-11] MEDS: FUROSEMIDE 40MG TABLET PO SCH (09:11)
[2022-08-11] MEDS ORDERED: EPOETIN ALFA-EPBX 10,000 UNIT/ML VIAL SUBCUT NR (13:30)
[2022-08-11] MEDS ORDERED: CHLORHEXIDINE GLUCONATE 4% EXTERNAL USE TOP SCH ×2 (21:00)
[2022-08-11] MEDS: ATORVASTATIN CALCIUM 40MG TABLET PO SCH (21:33)
[2022-08-11] MEDS: GUAIFENESIN-DM 200MG-20MG/10ML UDC PO PRN (21:37)
[2022-08-12] VITALS (74 sets, daily range): BP systolic 66–164; BP diastolic 7–93
[2022-08-12 04:49] LABS: BASOPHILS % 0.5 % (0.0-2.0); EOSINOPHILS % 3.9 % (0.0-5.0); HEMATOCRIT. 32.9 % (42.0-52.0); HEMOGLOBIN. 10.9 g/dL (14.0-18.0); LYMPHOCYTES % 14.5 % (20.0-50.0); MEAN CORPUSCULAR HEMOGLOBIN 27.5 pg (28.0-32.0); MEAN CORPUSCULAR VOLUME 82.9 fL (80.0-94.0); MONOCYTES % 13.9 % (2.0-8.0); NEUTROPHILS % 67.2 % (40.0-76.0); PLATELET 173 x1000/uL (130-400); RED BLOOD CELL COUNT 3.97 mill/uL (4.7-6.1); RED CELL DISTRIBUTION WIDTH 17.9 % (11.6-14.6)
[2022-08-12] MEDS ORDERED: NOREPINEPHRINE 8 MG in DEXT 5% WATER 242 ML IV NR (05:00)
[2022-08-12] MEDS ORDERED: PAPAVERINE HCL 180MG in SODIUM CHLORIDE 0.9% 24ML IV NR (05:00)
[2022-08-12] MEDS ORDERED: DEL NIDO ELECTROLYTE-S(PH 7.4) 1,000 ML IV NR ×2 (05:00)
[2022-08-12] MEDS ORDERED: VANCOMYCIN 1G PREMIX 200ML IV NR (05:00)
[2022-08-12] MEDS ORDERED: INSULIN REGULAR 100U/100ML PMX 100 ML IV NR (05:00)
[2022-08-12] MEDS ORDERED: DOBUTAMINE 250MG PREMIX 250 ML IV NR (05:00)
[2022-08-12] MEDS ORDERED: EPINEPHRINE 5 MG in DEXT 5% WATER 245 ML IV NR (05:00)
[2022-08-12] MEDS ORDERED: THROMBIN (BOVINE) 5000 UNITS/VIAL TOP ONE ×2 (05:28→08:55)
[2022-08-12] MEDS ORDERED: DOPAMINE 400MG/250ML PREMIX 250 ML IV ONE (05:28)
[2022-08-12] MEDS: NITROGLYCERIN OINT 1GM/INCH UDPKT TD SCH ×3 (05:31→17:24)
[2022-08-12] MEDS: CHLORHEXIDINE GLUCONATE 4% EXTERNAL USE TOP SCH ×2 (05:31→09:00)
[2022-08-12] MEDS ORDERED: LIDOCAINE HCL 1%/EPI 1:200,000 30 ML VIAL ONE (05:33)
[2022-08-12] MEDS ORDERED: POLYMYXIN B SULFATE 500000 UNITS/VIAL ONE (05:34)
[2022-08-12] MEDS ORDERED: SKIN ADHESIVE 0.7 GM EA TOP ONE (05:34)
[2022-08-12] MEDS ORDERED: NICARDIPINE 40MG/200ML PREMIX 200 ML IV ONE ×2 (06:25)
[2022-08-12] MEDS ORDERED: ROCURONIUM BROMIDE 10MG/ML VIAL 5ML IV ONE ×2 (07:15→08:55)
[2022-08-12] MEDS ORDERED: FENTANYL CITRATE/PF 50MCG/ML 2ML VIAL ONE (07:16)
[2022-08-12] MEDS: BLOOD SUGAR DIAGNOSTIC STRIP TEST SCH ×13 (07:50→23:00)
[2022-08-12] MEDS: FERROUS SULFATE 300MG/5ML UDC PO SCH ×2 (08:20→18:01)
[2022-08-12] MEDS: INSULIN LISPRO 100 UNITS/ML SUBCUT SCH (08:20)
[2022-08-12] MEDS ORDERED: CEFAZOLIN SODIUM 1000MG/VIAL ONE (08:53)
[2022-08-12] MEDS ORDERED: DEXAMETHASONE 4MG/ML 1ML VIAL ONE (08:53)
[2022-08-12] MEDS ORDERED: SODIUM BICARBONATE 8.4% 1 MEQ/ML 50ML SYR IV ONE ×6 (08:53→11:22)
[2022-08-12] MEDS: ASPIRIN 81MG EC TABLET PO SCH (09:00)
[2022-08-12] MEDS: FUROSEMIDE 40MG TABLET PO SCH (09:00)
[2022-08-12] MEDS: CARVEDILOL 3.125 MG TABLET PO SCH ×2 (09:00→21:00)
[2022-08-12] MEDS ORDERED: ALBUTEROL 6.7GM HFA INHALER ONE (09:31)
[2022-08-12] MEDS ORDERED: HEPARIN 1000 UNITS/ML 10ML ONE ×2 (09:31→09:53)
[2022-08-12] MEDS ORDERED: LEVOTHYROXINE SODIUM 100 MCG/ VIAL IV NR (10:00)
[2022-08-12] MEDS ORDERED: CALCIUM CHLORIDE 1GM/10ML SYR IV ONE (10:10)
[2022-08-12] MEDS ORDERED: KCL 10MEQ/50ML PREMIX 200 ML IV PRN (10:15)
[2022-08-12] MEDS ORDERED: KCL 10MEQ/50ML PREMIX 150 ML IV PRN (10:15)
[2022-08-12] MEDS ORDERED: DEXTROSE 50% WATER 50ML SYRINGE IV PRN ×2 (10:15)
[2022-08-12] MEDS ORDERED: GLYCOPYRROLATE 0.2 MG/ML 2ML VIAL ONE ×4 (10:21→11:05)
[2022-08-12] MEDS ORDERED: NEOSTIGMINE METHYLSULFATE 1MG/ML 10 ML VIAL ONE (11:04)
[2022-08-12] MEDS ORDERED: MAGNESIUM SULFATE 3 GM in DEXT 5% WATER 100 ML IV PRN ×2 (11:15→11:30)
[2022-08-12] MEDS ORDERED: MAGNESIUM 2 G PREMIX 50 ML IV PRN ×2 (11:15→11:30)
[2022-08-12] MEDS ORDERED: MAGNESIUM 1 G PREMIX 100 ML IV PRN (11:15)
[2022-08-12] MEDS ORDERED: ALBUMIN HUMAN 25GM/100ML (25%) IV PRN (11:30)
[2022-08-12] MEDS ORDERED: MORPHINE SULFATE 2 MG/ML CPJ (NOT FOR IM USE) IV PRN (11:30)
[2022-08-12] MEDS ORDERED: OXYCODONE HCL/ACETAMINOPHEN 5/325MG TABLET PO PRN ×2 (11:30)
[2022-08-12] MEDS ORDERED: EPINEPHRINE 5 MG in DEXT 5% WATER 245 ML IV PRN (11:30)
[2022-08-12] MEDS ORDERED: CALCIUM CHLORIDE 3,000 MG in DEXT 5% WATER 250 ML IV PRN (11:30)
[2022-08-12] MEDS ORDERED: ACETAMINOPHEN 325MG TABLET PO PRN (11:30)
[2022-08-12] MEDS ORDERED: SODIUM CHLORIDE 0.9% 500 ML IV PRN (11:30)
[2022-08-12] MEDS ORDERED: ALBUMIN HUMAN 12.5G/250ML (5%) IV PRN (11:30)
[2022-08-12] MEDS ORDERED: CALCIUM CHLORIDE 5,000 MG in DEXT 5% WATER 500 ML IV PRN (11:30)
[2022-08-12 12:07] LABS: BG BASE EXCESS -0.2 mmol/L (-2.0-2.0); BG CARBOXYHEMOGLOBIN 0.7 % (0.5-1.5); BG DEOXYHEMOGLOBIN 2.1 % (0.0-5.0); BG HCO3 ACT 25.8 mmol/L (22.0-26.0); BG METHEMOGLOBIN 0.4 % (0.0-1.5); BG OXYGEN SATURATION 97.9 % (92.0-98.5); BG OXYHEMOGLOBIN 96.8 % (94.0-97.0); BG PCO2 47.5 mmHg (35.0-45.0); BG PH 7.352 (7.350-7.450); BG PO2 113.5 mmHg (75.0-100.0); BG SAMPLE SITE ALINE; BG TOTAL HEMOGLOBIN 11.2 g/dL (12.0-18.0); BG VENT MODE MASK - NRB
[2022-08-12] MEDS: EPINEPHRINE 10 MG in SODIUM CHLORIDE 0.9% 250 ML IV PRN ×3 (12:20→21:18)
[2022-08-12] MEDS: DEXT 5%/0.45% NACL 1000ML 1,000 ML IV SCH (12:21)
[2022-08-12 12:23] LABS: HEMATOCRIT. 32.2 % (42.0-52.0); HEMOGLOBIN. 10.4 g/dL (14.0-18.0); MEAN CORPUSCULAR HEMOGLOBIN 26.7 pg (28.0-32.0); MEAN CORPUSCULAR VOLUME 82.4 fL (80.0-94.0); MEAN PLATELET VOLUME 8.5 fl (7.4-10.4); PLATELET 212 x1000/uL (130-400); RED BLOOD CELL COUNT 3.91 mill/uL (4.7-6.1)
[2022-08-12] MEDS: INSULIN REGULAR 100U/100ML PMX 100 ML IV SCH (12:28)
[2022-08-12] MEDS ORDERED: CEFAZOLIN 1000MG PREMIX 50 ML IV SCH (14:00)
[2022-08-12 14:19] LABS: PLATELET ESTIMATE NORMAL
[2022-08-12] MEDS: CEFAZOLIN 1000MG PREMIX 50 ML IV SCH ×2 (15:54→23:35)
[2022-08-12] MEDS ORDERED: FUROSEMIDE 20MG/2ML VIAL IVP NR (16:15)
[2022-08-12] MEDS: KCL 10MEQ/50ML PREMIX 100 ML IV PRN ×2 (16:22→18:17)
[2022-08-12] MEDS: BACITRACIN 15GM TUBE TOP SCH (17:00)
[2022-08-12] MEDS: ASPIRIN 81MG TABLET PO SCH (17:25)
[2022-08-12] MEDS: DOCUSATE SODIUM 100MG CAPSULE PO SCH (17:25)
[2022-08-12] MEDS: CLOPIDOGREL 75MG TABLET PO SCH (17:25)
[2022-08-12 18:18] LABS: HEMATOCRIT 29.2 % (42.0-52.0); HEMOGLOBIN 9.7 g/dL (14.0-18.0); MEAN CORPUSCULAR HEMOGLOBIN 27.3 pg (28.0-32.0); MEAN CORPUSCULAR VOLUME 82.5 fL (80.0-94.0); PLATELET 260 x1000/uL (130-400); RED BLOOD CELL COUNT 3.53 mill/uL (4.7-6.1); RED CELL DISTRIBUTION WIDTH 17.8 % (11.6-14.6)
[2022-08-12 18:39] LABS: PHOSPHORUS 3.4 mg/dL (2.5-4.9)
[2022-08-12] MEDS: MAGNESIUM 1 G PREMIX 100 ML IV PRN (18:42)
[2022-08-12] MEDS: IPRATROPIUM/ALBUTEROL 0.5-3(2.5)MG/3ML NEB HHN SCH (20:46)
[2022-08-12] MEDS: ATORVASTATIN CALCIUM 40MG TABLET PO SCH (21:29)
[2022-08-12] MEDS: ONDANSETRON HCL 4MG/2ML INJ IV PRN (21:38)
[2022-08-13] VITALS (88 sets, daily range): BP systolic 81–263; BP diastolic 9–262
[2022-08-13] MEDS: IPRATROPIUM/ALBUTEROL 0.5-3(2.5)MG/3ML NEB HHN SCH ×5 (00:10→20:21)
[2022-08-13] MEDS: BLOOD SUGAR DIAGNOSTIC STRIP TEST SCH ×24 (01:00→23:42)
[2022-08-13 01:25] LABS: PHOSPHORUS 3.5 mg/dL (2.5-4.9)
[2022-08-13] MEDS: MAGNESIUM 1 G PREMIX 100 ML IV PRN (01:40)
[2022-08-13] MEDS: NITROGLYCERIN OINT 1GM/INCH UDPKT TD SCH ×4 (05:13→17:25)
[2022-08-13 06:07] LABS: ALBUMIN URINE Note: % (.)
[2022-08-13 07:36] LABS: PHOSPHORUS 3.9 mg/dL (2.5-4.9)
[2022-08-13] MEDS ORDERED: SODIUM POLYSTYRENE SULFONATE 15 G/60 ML BOT PO NR (07:45)
[2022-08-13 08:05] LABS: HEMATOCRIT. 28.9 % (42.0-52.0); HEMOGLOBIN. 9.7 g/dL (14.0-18.0); MEAN CORPUSCULAR HEMOGLOBIN 27.4 pg (28.0-32.0); MEAN CORPUSCULAR VOLUME 81.6 fL (80.0-94.0); MEAN PLATELET VOLUME 8.7 fl (7.4-10.4); PLATELET 269 x1000/uL (130-400); RED BLOOD CELL COUNT 3.55 mill/uL (4.7-6.1); RED CELL DISTRIBUTION WIDTH 18.2 % (11.6-14.6)
[2022-08-13] MEDS: FERROUS SULFATE 300MG/5ML UDC PO SCH ×2 (08:14→18:21)
[2022-08-13] MEDS: CEFAZOLIN 1000MG PREMIX 50 ML IV SCH ×2 (08:14→16:53)
[2022-08-13] MEDS: ONDANSETRON HCL 4MG/2ML INJ IV PRN (08:44)
[2022-08-13] MEDS: BACITRACIN 15GM TUBE TOP SCH ×2 (09:00→17:57)
[2022-08-13] MEDS ORDERED: ASPIRIN 81MG TABLET PO SCH ×2 (09:00)
[2022-08-13] MEDS: ALBUMIN HUMAN 12.5GM/50ML (25%) IV SCH ×3 (09:45→15:24)
[2022-08-13] MEDS: ALBUMIN HUMAN 25GM/100ML (25%) IV SCH ×4 (09:46→23:45)
[2022-08-13] MEDS: FAMOTIDINE 20MG/2ML VIAL IV SCH (10:04)
[2022-08-13] MEDS: FUROSEMIDE 40MG TABLET PO SCH (10:04)
[2022-08-13] MEDS: CLOPIDOGREL 75MG TABLET PO SCH (10:04)
[2022-08-13] MEDS: ASPIRIN 81MG TABLET PO SCH (10:05)
[2022-08-13] MEDS: MIDODRINE HCL 5MG TABLET PO SCH ×3 (10:05→16:54)
[2022-08-13] MEDS: CARVEDILOL 3.125 MG TABLET PO SCH ×2 (10:05→21:00)
[2022-08-13] MEDS: DOCUSATE SODIUM 100MG CAPSULE PO SCH ×2 (10:18→16:53)
[2022-08-13 10:35] LABS: PLATELET ESTIMATE NORMAL
[2022-08-13] MEDS ORDERED: FUROSEMIDE 40MG/4ML VIAL IVP NR (11:00)
[2022-08-13] MEDS: DEXT 5%/0.45% NACL 1000ML 1,000 ML IV SCH (11:30)
[2022-08-13] MEDS ORDERED: ALBUMIN HUMAN 12.5GM/50ML (25%) IV ONE (13:30)
[2022-08-13] MEDS ORDERED: NALOXONE HCL 0.4MG/ML VIAL IV PRN (15:30)
[2022-08-13 17:21] LABS: HEMATOCRIT. 30.9 % (42.0-52.0); HEMOGLOBIN. 9.1 g/dL (14.0-18.0); MEAN CORPUSCULAR HEMOGLOBIN 26.7 pg (28.0-32.0); PLATELET 234 x1000/uL (130-400); RED CELL DISTRIBUTION WIDTH 19.4 % (11.6-14.6)
[2022-08-13] MEDS ORDERED: CLOPIDOGREL 75MG TABLET PO SCH (18:00)
[2022-08-13 19:29] LABS: PLATELET ESTIMATE NORMAL
[2022-08-13] MEDS: EPINEPHRINE 10 MG in SODIUM CHLORIDE 0.9% 250 ML IV PRN (19:42)
[2022-08-13 21:21] LABS: HEMATOCRIT 24.8 % (42.0-52.0); HEMOGLOBIN 8.2 g/dL (14.0-18.0); MEAN CORPUSCULAR HEMOGLOBIN 27.1 pg (28.0-32.0); PLATELET 193 x1000/uL (130-400); RED BLOOD CELL COUNT 3.02 mill/uL (4.7-6.1); RED CELL DISTRIBUTION WIDTH 17.9 % (11.6-14.6)
[2022-08-13] MEDS: ATORVASTATIN CALCIUM 40MG TABLET PO SCH (21:21)
[2022-08-14] VITALS (93 sets, daily range): BP systolic 76–137; BP diastolic 23–85
[2022-08-14] MEDS: IPRATROPIUM/ALBUTEROL 0.5-3(2.5)MG/3ML NEB HHN SCH ×7 (00:41→20:25)
[2022-08-14] MEDS: BLOOD SUGAR DIAGNOSTIC STRIP TEST SCH ×22 (01:17→21:12)
[2022-08-14] MEDS: ALBUMIN HUMAN 25GM/100ML (25%) IV SCH ×2 (03:00→08:05)
[2022-08-14] MEDS: NITROGLYCERIN OINT 1GM/INCH UDPKT TD SCH ×5 (06:00→23:53)
[2022-08-14 07:11] LABS: HEMATOCRIT. 22.9 % (42.0-52.0); HEMOGLOBIN. 7.4 g/dL (14.0-18.0); MEAN CORPUSCULAR HEMOGLOBIN 26.8 pg (28.0-32.0); MEAN CORPUSCULAR VOLUME 82.6 fL (80.0-94.0); MEAN PLATELET VOLUME 8.8 fl (7.4-10.4); PLATELET 172 x1000/uL (130-400); RED BLOOD CELL COUNT 2.78 mill/uL (4.7-6.1); RED CELL DISTRIBUTION WIDTH 18.4 % (11.6-14.6)
[2022-08-14 07:16] LABS: CHLORIDE 106 mEq/L (98-107)
[2022-08-14 07:22] LABS: HDL CHOLESTEROL 19 mg/dL (40-59); LDL CHOLESTEROL 16 mg/dL (5-100)
[2022-08-14] MEDS ORDERED: FUROSEMIDE 40MG/4ML VIAL IVP NR (07:45)
[2022-08-14] MEDS: METHYLPHENIDATE HCL 5MG TABLET PO SCH ×4 (08:25→16:46)
[2022-08-14] MEDS: CLOPIDOGREL 75MG TABLET PO SCH (08:47)
[2022-08-14] MEDS: DOCUSATE SODIUM 100MG CAPSULE PO SCH ×2 (08:50→16:46)
[2022-08-14] MEDS: ASPIRIN 81MG TABLET PO SCH (08:50)
[2022-08-14] MEDS: FERROUS SULFATE 300MG/5ML UDC PO SCH ×2 (08:51→18:39)
[2022-08-14] MEDS: FAMOTIDINE 20MG/2ML VIAL IV SCH (08:51)
[2022-08-14] MEDS: MIDODRINE HCL 5MG TABLET PO SCH ×3 (08:52→16:47)
[2022-08-14] MEDS: FUROSEMIDE 40MG TABLET PO SCH (08:56)
[2022-08-14] MEDS: CARVEDILOL 3.125 MG TABLET PO SCH ×2 (08:57→20:03)
[2022-08-14] MEDS ORDERED: DEXT 5% IV NR (09:00)
[2022-08-14] MEDS ORDERED: WATER IV NR (09:00)
[2022-08-14] MEDS ORDERED: CALCIUM CHLORIDE IV NR (09:00)
[2022-08-14] MEDS: BACITRACIN 15GM TUBE TOP SCH ×2 (09:04→16:47)
[2022-08-14] MEDS: MINERAL OIL 30ML BOTTLE PO SCH ×2 (11:06→16:46)
[2022-08-14 11:21] LABS: BASOPHILS % 0.3 % (0.0-2.0); EOSINOPHILS % 0.2 % (0.0-5.0); HEMATOCRIT. 24.6 % (42.0-52.0); HEMOGLOBIN. 8.1 g/dL (14.0-18.0); LYMPHOCYTES % 8.5 % (20.0-50.0); MEAN CORPUSCULAR HEMOGLOBIN 26.9 pg (28.0-32.0); MEAN CORPUSCULAR VOLUME 81.9 fL (80.0-94.0); MEAN PLATELET VOLUME 8.1 fl (7.4-10.4); MONOCYTES % 9.6 % (2.0-8.0); NEUTROPHILS % 81.4 % (40.0-76.0); PLATELET 163 x1000/uL (130-400); RED CELL DISTRIBUTION WIDTH 18.4 % (11.6-14.6)
[2022-08-14] MEDS: DEXT 5%/0.45% NACL 1000ML 1,000 ML IV SCH ×2 (11:30→23:52)
[2022-08-14] MEDS: INSULIN REGULAR 100U/100ML PMX 100 ML IV SCH (11:30)
[2022-08-14] MEDS ORDERED: FUROSEMIDE 40MG/4ML VIAL IVP SCH (12:00)
[2022-08-14 12:03] LABS: PHOSPHORUS 5.3 mg/dL (2.5-4.9)
[2022-08-14 12:56] LABS: PLATELET ESTIMATE NORMAL
[2022-08-14] MEDS: ONDANSETRON HCL 4MG/2ML INJ IV PRN ×2 (16:46→20:57)
[2022-08-14] MEDS ORDERED: METOLAZONE 10MG TABLET PO NR (20:00)
[2022-08-14] MEDS: ATORVASTATIN CALCIUM 40MG TABLET PO SCH (20:46)
[2022-08-14] MEDS ORDERED: BUMETANIDE 1MG/4ML VIAL IV NR (21:00)
[2022-08-14] MEDS ORDERED: DEXTROSE 50% WATER 50ML SYRINGE IV PRN (21:30)
[2022-08-14] MEDS ORDERED: FUROSEMIDE 40MG/4ML VIAL IVP PRN (23:45)
[2022-08-14] MEDS ORDERED: DOPAMINE 800MG/500ML PREMIX 500 ML IV ONE (23:45)
[2022-08-14] MEDS: DOPAMINE 400MG/250ML PREMIX 250 ML IV PRN (23:51)
[2022-08-15] VITALS (101 sets, daily range): BP systolic 52–164; BP diastolic 25–129
[2022-08-15] MEDS ORDERED: FUROSEMIDE 100MG/10ML VIAL IVP PRN
[2022-08-15] MEDS: IPRATROPIUM/ALBUTEROL 0.5-3(2.5)MG/3ML NEB HHN SCH ×5 (00:45→20:22)
[2022-08-15] MEDS: FUROSEMIDE 100 MG in SODIUM CHLORIDE 0.9% 90 ML IV PRN ×3 (00:58→18:16)
[2022-08-15] MEDS: ONDANSETRON HCL 4MG/2ML INJ IV PRN (02:17)
[2022-08-15] MEDS: NITROGLYCERIN OINT 1GM/INCH UDPKT TD SCH ×3 (05:56→17:16)
[2022-08-15 06:15] LABS: HEMOGLOBIN. 11.5 g/dL (14.0-18.0); MEAN CORPUSCULAR HEMOGLOBIN 27.6 pg (28.0-32.0); MEAN CORPUSCULAR VOLUME 83.9 fL (80.0-94.0); MEAN PLATELET VOLUME 8.4 fl (7.4-10.4); PLATELET 177 x1000/uL (130-400); RED BLOOD CELL COUNT 4.17 mill/uL (4.7-6.1); RED CELL DISTRIBUTION WIDTH 17.8 % (11.6-14.6)
[2022-08-15 06:28] LABS: PHOSPHORUS 5.4 mg/dL (2.5-4.9)
[2022-08-15] MEDS: BLOOD SUGAR DIAGNOSTIC STRIP TEST SCH ×4 (07:50→20:34)
[2022-08-15] MEDS ORDERED: LIDOCAINE HCL/PF 1% 10 MG/ML 5ML VIAL ONE (08:11)
[2022-08-15 08:46] LABS: PLATELET ESTIMATE NORMAL
[2022-08-15] MEDS: FAMOTIDINE 20MG/2ML VIAL IV SCH (08:58)
[2022-08-15] MEDS: METHYLPHENIDATE HCL 5MG TABLET PO SCH ×3 (08:58→17:23)
[2022-08-15] MEDS: DOCUSATE SODIUM 100MG CAPSULE PO SCH ×2 (08:58→17:00)
[2022-08-15] MEDS: CALCIUM ACETATE 667MG CAPSULE PO SCH ×3 (08:58→17:23)
[2022-08-15] MEDS: MINERAL OIL 30ML BOTTLE PO SCH ×2 (08:58→17:00)
[2022-08-15] MEDS: CLOPIDOGREL 75MG TABLET PO SCH (08:58)
[2022-08-15] MEDS: FERROUS SULFATE 300MG/5ML UDC PO SCH ×2 (08:58→17:23)
[2022-08-15] MEDS: MIDODRINE HCL 5MG TABLET PO SCH ×3 (08:59→17:23)
[2022-08-15] MEDS: ASPIRIN 81MG TABLET PO SCH (09:00)
[2022-08-15] MEDS: INSULIN LISPRO 100 UNITS/ML SUBCUT SCH ×4 (09:00→21:43)
[2022-08-15] MEDS: CARVEDILOL 3.125 MG TABLET PO SCH ×3 (09:04→20:18)
[2022-08-15] MEDS: BACITRACIN 15GM TUBE TOP SCH ×2 (09:04→17:24)
[2022-08-15] MEDS: DOPAMINE 400MG/250ML PREMIX 250 ML IV PRN (11:02)
[2022-08-15] MEDS ORDERED: ALBUMIN HUMAN 12.5GM/50ML (25%) IV NR (12:00)
[2022-08-15 14:22] LABS: HEPATITIS B SURFACE ANTIGEN NEGATIVE
[2022-08-15] MEDS: ATORVASTATIN CALCIUM 40MG TABLET PO SCH (21:38)
[2022-08-16] VITALS (100 sets, daily range): BP systolic 77–159; BP diastolic 19–124
[2022-08-16] MEDS: IPRATROPIUM/ALBUTEROL 0.5-3(2.5)MG/3ML NEB HHN SCH ×6 (00:46→20:35)
[2022-08-16] MEDS: FUROSEMIDE 100 MG in SODIUM CHLORIDE 0.9% 90 ML IV PRN ×2 (05:23→05:36)
[2022-08-16] MEDS: NITROGLYCERIN OINT 1GM/INCH UDPKT TD SCH ×4 (05:23→17:23)
[2022-08-16 05:27] LABS: HEMATOCRIT. 30.5 % (42.0-52.0); HEMOGLOBIN. 10.3 g/dL (14.0-18.0); MEAN CORPUSCULAR VOLUME 82.6 fL (80.0-94.0); MEAN PLATELET VOLUME 8.7 fl (7.4-10.4); PLATELET 181 x1000/uL (130-400); RED BLOOD CELL COUNT 3.69 mill/uL (4.7-6.1)
[2022-08-16] MEDS: DOPAMINE 400MG/250ML PREMIX 250 ML IV PRN (05:36)
[2022-08-16] MEDS: BLOOD SUGAR DIAGNOSTIC STRIP TEST SCH ×4 (08:02→21:33)
[2022-08-16] MEDS: MINERAL OIL 30ML BOTTLE PO SCH ×2 (08:13→17:29)
[2022-08-16] MEDS: CALCIUM ACETATE 667MG CAPSULE PO SCH ×3 (08:13→17:30)
[2022-08-16] MEDS: METHYLPHENIDATE HCL 5MG TABLET PO SCH ×3 (08:13→17:30)
[2022-08-16] MEDS: ASPIRIN 81MG TABLET PO SCH (08:13)
[2022-08-16] MEDS: CLOPIDOGREL 75MG TABLET PO SCH (08:13)
[2022-08-16] MEDS: FAMOTIDINE 20MG/2ML VIAL IV SCH (08:13)
[2022-08-16] MEDS: MIDODRINE HCL 5MG TABLET PO SCH ×3 (08:13→17:30)
[2022-08-16] MEDS: DOCUSATE SODIUM 100MG CAPSULE PO SCH ×2 (08:13→17:30)
[2022-08-16] MEDS: FERROUS SULFATE 300MG/5ML UDC PO SCH ×2 (08:14→17:29)
[2022-08-16] MEDS: INSULIN LISPRO 100 UNITS/ML SUBCUT SCH ×4 (08:14→21:33)
[2022-08-16] MEDS: BACITRACIN 15GM TUBE TOP SCH ×2 (08:15→17:30)
[2022-08-16] MEDS: CARVEDILOL 3.125 MG TABLET PO SCH ×2 (09:00→21:45)
[2022-08-16 11:25] LABS: PLATELET ESTIMATE NORMAL
[2022-08-16] MEDS: ATORVASTATIN CALCIUM 40MG TABLET PO SCH (21:32)
[2022-08-17] VITALS (98 sets, daily range): BP systolic 81–134; BP diastolic 31–98
[2022-08-17] MEDS: IPRATROPIUM/ALBUTEROL 0.5-3(2.5)MG/3ML NEB HHN SCH ×7 (00:43→20:14)
[2022-08-17] MEDS: DOPAMINE 400MG/250ML PREMIX 250 ML IV PRN ×2 (01:29→16:37)
[2022-08-17] MEDS: NITROGLYCERIN OINT 1GM/INCH UDPKT TD SCH ×4 (06:00→18:00)
[2022-08-17 06:24] LABS: BASOPHILS % 0.1 % (0.0-2.0); EOSINOPHILS % 2.7 % (0.0-5.0); HEMATOCRIT. 31.9 % (42.0-52.0); HEMOGLOBIN. 10.6 g/dL (14.0-18.0); LYMPHOCYTES % 7.4 % (20.0-50.0); MEAN CORPUSCULAR HEMOGLOBIN 27.6 pg (28.0-32.0); MEAN CORPUSCULAR VOLUME 83.1 fL (80.0-94.0); MEAN PLATELET VOLUME 8.2 fl (7.4-10.4); MONOCYTES % 11.2 % (2.0-8.0); NEUTROPHILS % 78.6 % (40.0-76.0); PLATELET 185 x1000/uL (130-400); RED BLOOD CELL COUNT 3.84 mill/uL (4.7-6.1); RED CELL DISTRIBUTION WIDTH 18.3 % (11.6-14.6)
[2022-08-17] MEDS: BLOOD SUGAR DIAGNOSTIC STRIP TEST SCH ×4 (07:50→21:30)
[2022-08-17] MEDS ORDERED: TRAMADOL HCL/ACETAMINOPHEN 37.5/325MG TABLET PO PRN (08:00)
[2022-08-17] MEDS: INSULIN LISPRO 100 UNITS/ML SUBCUT SCH ×4 (08:20→21:00)
[2022-08-17] MEDS: CARVEDILOL 3.125 MG TABLET PO SCH ×2 (09:02→21:00)
[2022-08-17] MEDS: MINERAL OIL 30ML BOTTLE PO SCH ×2 (09:02→17:59)
[2022-08-17] MEDS: FERROUS SULFATE 300MG/5ML UDC PO SCH ×2 (09:02→17:59)
[2022-08-17] MEDS: CALCIUM ACETATE 667MG CAPSULE PO SCH ×3 (09:02→17:59)
[2022-08-17] MEDS: CLOPIDOGREL 75MG TABLET PO SCH (09:02)
[2022-08-17] MEDS: DOCUSATE SODIUM 250MG CAPSULE PO SCH ×2 (09:03→17:59)
[2022-08-17] MEDS: ASPIRIN 81MG TABLET PO SCH (09:03)
[2022-08-17] MEDS: FAMOTIDINE 20MG TABLET PO SCH (09:03)
[2022-08-17] MEDS: METHYLPHENIDATE HCL 5MG TABLET PO SCH ×3 (09:03→18:00)
[2022-08-17] MEDS: BACITRACIN 15GM TUBE TOP SCH ×2 (09:05→18:00)
[2022-08-17] MEDS: MIDODRINE HCL 5MG TABLET PO SCH ×3 (09:07→18:00)
[2022-08-17] MEDS: ATORVASTATIN CALCIUM 40MG TABLET PO SCH (21:33)
[2022-08-18] VITALS (75 sets, daily range): BP systolic 44–131; BP diastolic 20–104
[2022-08-18] MEDS: IPRATROPIUM/ALBUTEROL 0.5-3(2.5)MG/3ML NEB HHN SCH ×6 (00:09→21:08)
[2022-08-18 05:53] LABS: HEMATOCRIT. 31.1 % (42.0-52.0); HEMOGLOBIN. 10.2 g/dL (14.0-18.0); MEAN CORPUSCULAR HEMOGLOBIN 27.8 pg (28.0-32.0); MEAN CORPUSCULAR VOLUME 85.1 fL (80.0-94.0); MEAN PLATELET VOLUME 8.5 fl (7.4-10.4); PLATELET 210 x1000/uL (130-400); RED BLOOD CELL COUNT 3.65 mill/uL (4.7-6.1); RED CELL DISTRIBUTION WIDTH 18.1 % (11.6-14.6)
[2022-08-18] MEDS: DOPAMINE 400MG/250ML PREMIX 250 ML IV PRN ×2 (06:19→08:15)
[2022-08-18] MEDS: NITROGLYCERIN OINT 1GM/INCH UDPKT TD SCH ×4 (06:50→17:59)
[2022-08-18 07:41] LABS: PLATELET ESTIMATE NORMAL
[2022-08-18] MEDS: BLOOD SUGAR DIAGNOSTIC STRIP TEST SCH ×4 (07:50→21:46)
[2022-08-18] MEDS: METHYLPHENIDATE HCL 5MG TABLET PO SCH ×3 (08:53→21:45)
[2022-08-18] MEDS: ASPIRIN 81MG TABLET PO SCH (08:53)
[2022-08-18] MEDS: CLOPIDOGREL 75MG TABLET PO SCH (08:54)
[2022-08-18] MEDS: DOCUSATE SODIUM 250MG CAPSULE PO SCH ×2 (08:54→17:31)
[2022-08-18] MEDS: MIDODRINE HCL 5MG TABLET PO SCH ×3 (08:54→17:31)
[2022-08-18] MEDS: FAMOTIDINE 20MG TABLET PO SCH (08:54)
[2022-08-18] MEDS: FERROUS SULFATE 300MG/5ML UDC PO SCH ×2 (08:54→17:31)
[2022-08-18] MEDS: INSULIN LISPRO 100 UNITS/ML SUBCUT SCH ×4 (08:55→21:44)
[2022-08-18] MEDS: CARVEDILOL 3.125 MG TABLET PO SCH ×2 (08:56→21:46)
[2022-08-18] MEDS: CALCIUM ACETATE 667MG CAPSULE PO SCH ×3 (08:57→17:31)
[2022-08-18] MEDS ORDERED: LACTULOSE 20G/30ML UDC PO PRN (11:30)
[2022-08-18] MEDS: MINERAL OIL 30ML BOTTLE PO SCH ×2 (13:12→17:00)
[2022-08-18] MEDS: ATORVASTATIN CALCIUM 40MG TABLET PO SCH (21:45)
[2022-08-19] VITALS (12 sets, daily range): BP systolic 100–162; BP diastolic 52–81
[2022-08-19] MEDS: NITROGLYCERIN OINT 1GM/INCH UDPKT TD SCH ×4 (06:00→18:00)
[2022-08-19 06:49] LABS: HEMATOCRIT. 31.6 % (42.0-52.0); HEMOGLOBIN. 10.5 g/dL (14.0-18.0); MEAN CORPUSCULAR HEMOGLOBIN 27.7 pg (28.0-32.0); MEAN CORPUSCULAR VOLUME 83.6 fL (80.0-94.0); MEAN PLATELET VOLUME 8.5 fl (7.4-10.4); PLATELET 227 x1000/uL (130-400); RED BLOOD CELL COUNT 3.78 mill/uL (4.7-6.1); RED CELL DISTRIBUTION WIDTH 18.4 % (11.6-14.6)
[2022-08-19] MEDS: BLOOD SUGAR DIAGNOSTIC STRIP TEST SCH ×4 (07:01→21:12)
[2022-08-19] MEDS: FERROUS SULFATE 300MG/5ML UDC PO SCH ×2 (07:20→16:54)
[2022-08-19] MEDS: INSULIN LISPRO 100 UNITS/ML SUBCUT SCH ×4 (07:20→21:00)
[2022-08-19] MEDS: CALCIUM ACETATE 667MG CAPSULE PO SCH ×3 (08:13→16:55)
[2022-08-19] MEDS: METHYLPHENIDATE HCL 5MG TABLET PO SCH ×3 (08:15→16:55)
[2022-08-19] MEDS: MIDODRINE HCL 5MG TABLET PO SCH ×3 (08:15→16:55)
[2022-08-19] MEDS: CLOPIDOGREL 75MG TABLET PO SCH (08:15)
[2022-08-19] MEDS: ASPIRIN 81MG TABLET PO SCH (08:15)
[2022-08-19] MEDS: FAMOTIDINE 20MG TABLET PO SCH (08:15)
[2022-08-19] MEDS: CARVEDILOL 3.125 MG TABLET PO SCH ×2 (08:15→21:17)
[2022-08-19] MEDS: MINERAL OIL 30ML BOTTLE PO SCH ×2 (08:16→16:55)
[2022-08-19] MEDS: DOCUSATE SODIUM 250MG CAPSULE PO SCH ×2 (08:22→16:54)
[2022-08-19] MEDS: BACITRACIN 15GM TUBE TOP SCH ×3 (08:23→16:55)
[2022-08-19] MEDS: IPRATROPIUM/ALBUTEROL 0.5-3(2.5)MG/3ML NEB HHN SCH ×4 (08:31→20:13)
[2022-08-19 12:10] LABS: PLATELET ESTIMATE NORMAL
[2022-08-19] MEDS: ATORVASTATIN CALCIUM 40MG TABLET PO SCH (21:16)
[2022-08-20] VITALS (19 sets, daily range): BP systolic 61–156; BP diastolic 30–87
[2022-08-20] MEDS: NITROGLYCERIN OINT 1GM/INCH UDPKT TD SCH ×4 (00:11→18:00)
[2022-08-20] MEDS: IPRATROPIUM/ALBUTEROL 0.5-3(2.5)MG/3ML NEB HHN SCH ×6 (00:24→19:56)
[2022-08-20] MEDS: BLOOD SUGAR DIAGNOSTIC STRIP TEST SCH ×4 (06:56→20:57)
[2022-08-20] MEDS: CALCIUM ACETATE 667MG CAPSULE PO SCH ×3 (07:20→17:52)
[2022-08-20] MEDS: INSULIN LISPRO 100 UNITS/ML SUBCUT SCH ×4 (07:20→20:57)
[2022-08-20 07:22] LABS: HEMATOCRIT. 32.1 % (42.0-52.0); HEMOGLOBIN. 10.4 g/dL (14.0-18.0); MEAN CORPUSCULAR HEMOGLOBIN 27.1 pg (28.0-32.0); MEAN CORPUSCULAR VOLUME 83.6 fL (80.0-94.0); MEAN PLATELET VOLUME 8.4 fl (7.4-10.4); PLATELET 224 x1000/uL (130-400); RED BLOOD CELL COUNT 3.84 mill/uL (4.7-6.1); RED CELL DISTRIBUTION WIDTH 18.8 % (11.6-14.6)
[2022-08-20] MEDS: FERROUS SULFATE 300MG/5ML UDC PO SCH ×2 (08:43→17:52)
[2022-08-20] MEDS: MIDODRINE HCL 5MG TABLET PO SCH (08:44)
[2022-08-20] MEDS: ASPIRIN 81MG TABLET PO SCH (08:44)
[2022-08-20] MEDS: CLOPIDOGREL 75MG TABLET PO SCH (08:44)
[2022-08-20] MEDS: FAMOTIDINE 20MG TABLET PO SCH (08:44)
[2022-08-20] MEDS: MINERAL OIL 30ML BOTTLE PO SCH ×2 (08:44→17:52)
[2022-08-20] MEDS: DOCUSATE SODIUM 250MG CAPSULE PO SCH ×2 (08:44→17:52)
[2022-08-20] MEDS: CARVEDILOL 3.125 MG TABLET PO SCH ×2 (08:44→21:00)
[2022-08-20] MEDS: BACITRACIN 15GM TUBE TOP SCH ×2 (08:45→17:52)
[2022-08-20] MEDS: METHYLPHENIDATE HCL 5MG TABLET PO SCH (08:45)
[2022-08-20 09:48] LABS: PLATELET ESTIMATE NORMAL
[2022-08-20] MEDS ORDERED: CARVEDILOL 3.125 MG TABLET PO NR (10:15)
[2022-08-20] MEDS ORDERED: CEFTRIAXONE 1,000 MG in DEXTROSE 5% WATER 50 ML IV SCH (13:00)
[2022-08-20] MEDS ORDERED: WARFARIN SODIUM 5MG TABLET PO NR (14:30)
[2022-08-20] MEDS: ALBUMIN HUMAN 25GM/100ML (25%) IV SCH ×3 (15:13→21:59)
[2022-08-20 16:27] LABS: BG CARBOXYHEMOGLOBIN 0.7 % (0.5-1.5); BG DEOXYHEMOGLOBIN 35.8 % (0.0-5.0); BG FRACTION INSPIRED OXYGEN 36; BG HCO3 ACT 21.5 mmol/L (22.0-26.0); BG METHEMOGLOBIN 0.4 % (0.0-1.5); BG OXYGEN SATURATION 63.8 % (92.0-98.5); BG OXYHEMOGLOBIN 63.1 % (94.0-97.0); BG PCO2 36.4 mmHg (35.0-45.0); BG PH 7.389 (7.350-7.450); BG PO2 35.5 mmHg (75.0-100.0); BG SAMPLE SITE RIGHT BRACHIAL; BG TOTAL HEMOGLOBIN 10.6 g/dL (12.0-18.0); BG VENT MODE NASAL CANNULA
[2022-08-20] MEDS ORDERED: VANCOMYCIN 2,000 MG in DEXT 5% WATER 500 ML IV NR (18:00)
[2022-08-20] MEDS: CEFEPIME 1,000 MG in DEXTROSE 5% WATER 50 ML IV SCH (18:55)
[2022-08-20 20:20] LABS: BG BASE EXCESS -3.2 mmol/L (-2.0-2.0); BG CARBOXYHEMOGLOBIN 0.6 % (0.5-1.5); BG DEOXYHEMOGLOBIN 0.7 % (0.0-5.0); BG FRACTION INSPIRED OXYGEN 100; BG HCO3 ACT 20.4 mmol/L (22.0-26.0); BG METHEMOGLOBIN 0.4 % (0.0-1.5); BG OXYGEN SATURATION 99.3 % (92.0-98.5); BG OXYHEMOGLOBIN 98.3 % (94.0-97.0); BG PCO2 31.3 mmHg (35.0-45.0); BG PH 7.432 (7.350-7.450); BG PO2 207.4 mmHg (75.0-100.0); BG SAMPLE SITE RIGHT RADIAL; BG TOTAL HEMOGLOBIN 9.7 g/dL (12.0-18.0); BG VENT MODE MASK - NRB
[2022-08-20] MEDS: ACETAMINOPHEN 325MG TABLET PO PRN (20:57)
[2022-08-20] MEDS: ATORVASTATIN CALCIUM 40MG TABLET PO SCH (20:57)
[2022-08-21] VITALS (26 sets, daily range): BP systolic 79–152; BP diastolic 48–101
[2022-08-21] MEDS: IPRATROPIUM/ALBUTEROL 0.5-3(2.5)MG/3ML NEB HHN SCH ×4 (00:01→20:12)
[2022-08-21] MEDS: NITROGLYCERIN OINT 1GM/INCH UDPKT TD SCH ×2 (06:00)
[2022-08-21] MEDS: BLOOD SUGAR DIAGNOSTIC STRIP TEST SCH ×3 (06:50→16:50)
[2022-08-21 06:55] LABS: HEMATOCRIT. 27.1 % (42.0-52.0); MEAN CORPUSCULAR HEMOGLOBIN 27.4 pg (28.0-32.0); MEAN CORPUSCULAR VOLUME 82.6 fL (80.0-94.0); PLATELET 165 x1000/uL (130-400); RED BLOOD CELL COUNT 3.28 mill/uL (4.7-6.1); RED CELL DISTRIBUTION WIDTH 18.6 % (11.6-14.6)
[2022-08-21] MEDS: INSULIN LISPRO 100 UNITS/ML SUBCUT SCH ×3 (07:20→17:20)
[2022-08-21 07:51] LABS: INR 1.5; PROTHROMBIN TIME 15.9 sec (9.6-11.0)
[2022-08-21 08:37] LABS: BG BASE EXCESS -2.8 mmol/L (-2.0-2.0); BG DEOXYHEMOGLOBIN 9.2 % (0.0-5.0); BG FRACTION INSPIRED OXYGEN 28; BG HCO3 ACT 20.9 mmol/L (22.0-26.0); BG METHEMOGLOBIN 0.4 % (0.0-1.5); BG OXYGEN SATURATION 90.7 % (92.0-98.5); BG OXYHEMOGLOBIN 89.4 % (94.0-97.0); BG PCO2 32.3 mmHg (35.0-45.0); BG PH 7.429 (7.350-7.450); BG PO2 60.4 mmHg (75.0-100.0); BG SAMPLE SITE RIGHT RADIAL; BG TOTAL HEMOGLOBIN 9.7 g/dL (12.0-18.0); BG VENT MODE NASAL CANNULA
[2022-08-21] MEDS: MINERAL OIL 30ML BOTTLE PO SCH ×2 (09:00→17:00)
[2022-08-21] MEDS: DOCUSATE SODIUM 250MG CAPSULE PO SCH ×2 (09:00→17:00)
[2022-08-21] MEDS: CARVEDILOL 3.125 MG TABLET PO SCH (09:00)
[2022-08-21] MEDS: ASPIRIN 81MG TABLET PO SCH (09:42)
[2022-08-21] MEDS: FAMOTIDINE 20MG TABLET PO SCH (09:42)
[2022-08-21] MEDS: FERROUS SULFATE 300MG/5ML UDC PO SCH ×2 (09:42→17:20)
[2022-08-21] MEDS: CALCIUM ACETATE 667MG CAPSULE PO SCH ×3 (09:42→17:20)
[2022-08-21] MEDS: BACITRACIN 15GM TUBE TOP SCH ×2 (09:43→17:56)
[2022-08-21] MEDS ORDERED: ALBUMIN HUMAN 25GM/100ML (25%) IV NR (11:00)
[2022-08-21] MEDS ORDERED: LIDOCAINE HCL/PF 1% 10 MG/ML 5ML VIAL ONE (12:34)
[2022-08-21] MEDS ORDERED: GENTAMICIN SULFATE 160 MG in SODIUM CHLORIDE 0.9% 100 ML IV NR (13:00)
[2022-08-21 13:08] LABS: PLATELET ESTIMATE NORMAL
[2022-08-21] MEDS: SODIUM CHLORIDE 0.9% 1,000 ML IV SCH (15:33)
[2022-08-21] MEDS ORDERED: ENOXAPARIN 100MG/ML SYR SUBCUT SCH (16:00)
[2022-08-21] MEDS ORDERED: DOPAMINE 400MG/250ML PREMIX 250 ML IV PRN (17:10)
[2022-08-21] MEDS: NOREPINEPHRINE 32 MG in DEXT 5% WATER 218 ML IV PRN (17:50)
[2022-08-21] MEDS: PHENYLEPHRINE 100 MG in DEXT 5% WATER 240 ML IV PRN (17:51)
[2022-08-21 18:02] LABS: BG CARBOXYHEMOGLOBIN 0.1 % (0.5-1.5); BG DEOXYHEMOGLOBIN 10.8 % (0.0-5.0); BG HCO3 ACT 14.5 mmol/L (22.0-26.0); BG METHEMOGLOBIN 0.3 % (0.0-1.5); BG OXYGEN SATURATION 89.2 % (92.0-98.5); BG OXYHEMOGLOBIN 88.8 % (94.0-97.0); BG PCO2 51.2 mmHg (35.0-45.0); BG PH 7.069 (7.350-7.450); BG PO2 79.2 mmHg (75.0-100.0); BG SAMPLE SITE LEFT FEMORAL; BG TOTAL HEMOGLOBIN 9.4 g/dL (12.0-18.0); BG VENT MODE VENT - AC
[2022-08-21] MEDS ORDERED: SODIUM BICARBONATE 8.4% 1 MEQ/ML 50ML SYR IV NR (18:15)
[2022-08-21 20:52] LABS: HEMATOCRIT. 27.3 % (42.0-52.0); HEMOGLOBIN. 8.9 g/dL (14.0-18.0); MEAN CORPUSCULAR HEMOGLOBIN 26.9 pg (28.0-32.0); MEAN CORPUSCULAR VOLUME 82.2 fL (80.0-94.0); MEAN PLATELET VOLUME 8.6 fl (7.4-10.4); PLATELET 146 x1000/uL (130-400); RED BLOOD CELL COUNT 3.32 mill/uL (4.7-6.1); RED CELL DISTRIBUTION WIDTH 18.6 % (11.6-14.6)
[2022-08-21 20:59] LABS: INR 2.1; PROTHROMBIN TIME 21.4 sec (9.6-11.0)
[2022-08-21] MEDS: ATORVASTATIN CALCIUM 40MG TABLET PO SCH (21:00)
[2022-08-21 21:41] LABS: PLATELET ESTIMATE NORMAL
[2022-08-21] MEDS: CEFEPIME 1,000 MG in DEXTROSE 5% WATER 50 ML IV SCH (23:14)
[2022-08-22] VITALS (93 sets, daily range): BP systolic 58–126; BP diastolic 30–85
[2022-08-22] MEDS: IPRATROPIUM/ALBUTEROL 0.5-3(2.5)MG/3ML NEB HHN SCH ×7 (00:40→23:47)
[2022-08-22] MEDS: INSULIN LISPRO 100 UNITS/ML SUBCUT SCH ×4 (02:19→17:47)
[2022-08-22] MEDS: BLOOD SUGAR DIAGNOSTIC STRIP TEST SCH ×4 (05:59→17:23)
[2022-08-22] MEDS: PHENYLEPHRINE 100 MG in DEXT 5% WATER 240 ML IV PRN ×5 (06:00→21:41)
[2022-08-22] MEDS: NOREPINEPHRINE 32 MG in DEXT 5% WATER 218 ML IV PRN ×4 (06:01→22:26)
[2022-08-22 06:34] LABS: HEMATOCRIT. 32.8 % (42.0-52.0); HEMOGLOBIN. 10.7 g/dL (14.0-18.0); MEAN CORPUSCULAR HEMOGLOBIN 27.1 pg (28.0-32.0); PLATELET 220 x1000/uL (130-400); RED BLOOD CELL COUNT 3.96 mill/uL (4.7-6.1)
[2022-08-22 06:54] LABS: INR 2.8; PROTHROMBIN TIME 27.4 sec (9.6-11.0)
[2022-08-22] MEDS: SODIUM CHLORIDE 0.9% 1,000 ML IV SCH (07:35)
[2022-08-22] MEDS: MINERAL OIL 30ML BOTTLE PO SCH ×2 (09:00→16:20)
[2022-08-22] MEDS: DOCUSATE SODIUM 250MG CAPSULE PO SCH ×2 (09:00→16:21)
[2022-08-22 09:24] LABS: BG BASE EXCESS -5.1 mmol/L (-2.0-2.0); BG CARBOXYHEMOGLOBIN 0.3 % (0.5-1.5); BG DEOXYHEMOGLOBIN 0.4 % (0.0-5.0); BG FRACTION INSPIRED OXYGEN 100; BG HCO3 ACT 19.2 mmol/L (22.0-26.0); BG METHEMOGLOBIN 0.3 % (0.0-1.5); BG OXYGEN SATURATION 99.6 % (92.0-98.5); BG PCO2 33.3 mmHg (35.0-45.0); BG PH 7.379 (7.350-7.450); BG PO2 370.1 mmHg (75.0-100.0); BG SAMPLE SITE RIGHT RADIAL; BG VENT MODE VENT - AC
[2022-08-22] MEDS: BACITRACIN 15GM TUBE TOP SCH ×2 (09:38→17:03)
[2022-08-22 10:24] LABS: NUCLEATED RED BLOOD CELLS 1 /100 WBC; PLATELET ESTIMATE NORMAL
[2022-08-22] MEDS ORDERED: METOPROLOL SUCCINATE 50MG ER TABLET PO SCH (11:00)
[2022-08-22] MEDS: FERROUS SULFATE 300MG/5ML UDC PO SCH ×2 (11:13→17:46)
[2022-08-22] MEDS: CALCIUM ACETATE 667MG CAPSULE PO SCH ×3 (11:13→17:46)
[2022-08-22] MEDS: SODIUM BICARBONATE 100 MEQ in DEXTROSE 5% WATER 1,000 ML IV SCH (11:13)
[2022-08-22] MEDS: FAMOTIDINE 20MG TABLET PO SCH (11:13)
[2022-08-22] MEDS: ASPIRIN 81MG TABLET PO SCH (11:14)
[2022-08-22] MEDS: MIDODRINE HCL 5MG TABLET PO SCH ×3 (11:14→17:43)
[2022-08-22] MEDS ORDERED: VANCOMYCIN 750MG PREMIX 150 ML IV NR (15:00)
[2022-08-22] MEDS: ACETAMINOPHEN 325MG TABLET PO PRN (16:23)
[2022-08-22] MEDS: CEFEPIME 1,000 MG in DEXTROSE 5% WATER 50 ML IV SCH (17:42)
[2022-08-22] MEDS: ATORVASTATIN CALCIUM 40MG TABLET PO SCH (21:07)
[2022-08-23] VITALS (102 sets, daily range): BP systolic 64–125; BP diastolic 28–94
[2022-08-23] MEDS: BLOOD SUGAR DIAGNOSTIC STRIP TEST SCH ×4 (00:03→17:57)
[2022-08-23] MEDS: PHENYLEPHRINE 100 MG in DEXT 5% WATER 240 ML IV PRN ×6 (01:38→21:56)
[2022-08-23] MEDS: IPRATROPIUM/ALBUTEROL 0.5-3(2.5)MG/3ML NEB HHN SCH ×2 (03:35→08:39)
[2022-08-23] MEDS: NOREPINEPHRINE 32 MG in DEXT 5% WATER 218 ML IV PRN ×5 (04:42→21:56)
[2022-08-23] MEDS: VASOPRESSIN 20 UNIT in SODIUM CHLORIDE 0.9% 99 ML IV PRN ×3 (04:51→22:35)
[2022-08-23 05:48] LABS: BASOPHILS % 0.3 % (0.0-2.0); EOSINOPHILS % 1.7 % (0.0-5.0); HEMATOCRIT. 32.4 % (42.0-52.0); HEMOGLOBIN. 10.7 g/dL (14.0-18.0); LYMPHOCYTES % 8.1 % (20.0-50.0); MEAN CORPUSCULAR HEMOGLOBIN 27.2 pg (28.0-32.0); MEAN CORPUSCULAR VOLUME 82.1 fL (80.0-94.0); MEAN PLATELET VOLUME 9.1 fl (7.4-10.4); MONOCYTES % 8.3 % (2.0-8.0); NEUTROPHILS % 81.6 % (40.0-76.0); PLATELET 162 x1000/uL (130-400); RED BLOOD CELL COUNT 3.94 mill/uL (4.7-6.1); RED CELL DISTRIBUTION WIDTH 19.5 % (11.6-14.6)
[2022-08-23 06:07] LABS: PROTHROMBIN TIME 39.3 sec (9.6-11.0)
[2022-08-23] MEDS: SODIUM BICARBONATE 100 MEQ in DEXTROSE 5% WATER 1,000 ML IV SCH (06:17)
[2022-08-23] MEDS: INSULIN LISPRO 100 UNITS/ML SUBCUT SCH ×4 (06:26→18:16)
[2022-08-23 07:30] LABS: INR 4.1
[2022-08-23 07:57] LABS: BG BASE EXCESS -4.9 mmol/L (-2.0-2.0); BG CARBOXYHEMOGLOBIN 0.7 % (0.5-1.5); BG DEOXYHEMOGLOBIN 3.3 % (0.0-5.0); BG FRACTION INSPIRED OXYGEN 100; BG HCO3 ACT 19.8 mmol/L (22.0-26.0); BG METHEMOGLOBIN 0.2 % (0.0-1.5); BG OXYGEN SATURATION 96.7 % (92.0-98.5); BG OXYHEMOGLOBIN 95.8 % (94.0-97.0); BG PCO2 35.4 mmHg (35.0-45.0); BG PH 7.366 (7.350-7.450); BG PO2 91.3 mmHg (75.0-100.0); BG SAMPLE SITE LEFT RADIAL; BG TOTAL HEMOGLOBIN 11.7 g/dL (12.0-18.0); BG TOTAL RESPIRATORY RATE 22 b/min; BG VENT MODE VENT - AC
[2022-08-23] MEDS ORDERED: CALCIUM GLUCONATE 1,000 MG in DEXT 5% WATER 90 ML IV ONE (08:30)
[2022-08-23] MEDS: DOCUSATE SODIUM 250MG CAPSULE PO SCH ×2 (09:00→17:00)
[2022-08-23] MEDS: MINERAL OIL 30ML BOTTLE PO SCH ×2 (09:00→17:06)
[2022-08-23] MEDS: ASPIRIN 81MG TABLET PO SCH (09:00)
[2022-08-23] MEDS: FAMOTIDINE 20MG TABLET PO SCH (09:09)
[2022-08-23] MEDS: FERROUS SULFATE 300MG/5ML UDC PO SCH ×2 (09:09→18:14)
[2022-08-23] MEDS: MIDODRINE HCL 5MG TABLET PO SCH ×3 (09:09→17:06)
[2022-08-23] MEDS: CALCIUM ACETATE 667MG CAPSULE PO SCH ×3 (09:09→18:14)
[2022-08-23] MEDS: BACITRACIN 15GM TUBE TOP SCH ×2 (09:11→17:06)
[2022-08-23] MEDS ORDERED: CALCIUM GLUCONATE 1GM PREMIX 50 ML IV NR (10:00)
[2022-08-23] MEDS ORDERED: IPRATROPIUM BROMIDE (0.02%) 0.5MG/2.5ML NEB HHN PRN (10:30)
[2022-08-23] MEDS ORDERED: LISINOPRIL 5MG TABLET PO SCH (11:00)
[2022-08-23] MEDS: SODIUM BICARBONATE 100 MEQ in SODIUM CHLORIDE 0.45% 1,000 ML IV SCH (11:08)
[2022-08-23] MEDS: IPRATROPIUM BROMIDE (0.02%) 0.5MG/2.5ML NEB HHN SCH ×2 (12:31→19:53)
[2022-08-23] MEDS: CEFEPIME 1,000 MG in DEXTROSE 5% WATER 50 ML IV SCH (18:13)
[2022-08-23] MEDS: ATORVASTATIN CALCIUM 40MG TABLET PO SCH (20:26)
[2022-08-23] MEDS: MEROPENEM 1,000 MG in SODIUM CHLORIDE 0.9% 100 ML IV SCH (20:26)
[2022-08-24] VITALS (96 sets, daily range): BP systolic 48–123; BP diastolic 34–65
[2022-08-24] MEDS: INSULIN LISPRO 100 UNITS/ML SUBCUT SCH ×4 (00:21→17:25)
[2022-08-24] MEDS: IPRATROPIUM BROMIDE (0.02%) 0.5MG/2.5ML NEB HHN SCH ×5 (00:50→20:26)
[2022-08-24] MEDS: PHENYLEPHRINE 100 MG in DEXT 5% WATER 240 ML IV PRN ×6 (02:07→22:41)
[2022-08-24] MEDS: NOREPINEPHRINE 32 MG in DEXT 5% WATER 218 ML IV PRN ×6 (02:07→22:42)
[2022-08-24] MEDS: SODIUM BICARBONATE 100 MEQ in SODIUM CHLORIDE 0.45% 1,000 ML IV SCH ×2 (03:05→22:14)
[2022-08-24 04:52] LABS: HEMATOCRIT. 31.3 % (42.0-52.0); HEMOGLOBIN. 10.5 g/dL (14.0-18.0); MEAN CORPUSCULAR VOLUME 80.3 fL (80.0-94.0); MEAN PLATELET VOLUME 9.2 fl (7.4-10.4); PLATELET 155 x1000/uL (130-400); RED CELL DISTRIBUTION WIDTH 19.1 % (11.6-14.6)
[2022-08-24 05:24] LABS: PROTHROMBIN TIME 48.9 sec (9.6-11.0)
[2022-08-24] MEDS: BLOOD SUGAR DIAGNOSTIC STRIP TEST SCH ×4 (05:47→17:30)
[2022-08-24 06:38] LABS: INR 5.2
[2022-08-24 06:39] LABS: PARTIAL THROMBOPLASTIN TIME 96.7 sec (23.4-31.0)
[2022-08-24 07:48] LABS: PLATELET ESTIMATE NORMAL
[2022-08-24 08:44] LABS: BG BASE EXCESS -5.7 mmol/L (-2.0-2.0); BG CARBOXYHEMOGLOBIN 0.2 % (0.5-1.5); BG DEOXYHEMOGLOBIN 1.7 % (0.0-5.0); BG FRACTION INSPIRED OXYGEN 100; BG HCO3 ACT 18.8 mmol/L (22.0-26.0); BG METHEMOGLOBIN 0.3 % (0.0-1.5); BG OXYGEN SATURATION 98.3 % (92.0-98.5); BG OXYHEMOGLOBIN 97.8 % (94.0-97.0); BG PCO2 33.8 mmHg (35.0-45.0); BG PH 7.364 (7.350-7.450); BG PO2 118.4 mmHg (75.0-100.0); BG SAMPLE SITE RIGHT RADIAL; BG TOTAL HEMOGLOBIN 12.8 g/dL (12.0-18.0); BG VENT MODE VENT - AC
[2022-08-24] MEDS ORDERED: PHYTONADIONE 10MG/ML AMP SUBCUT SCH (09:00)
[2022-08-24] MEDS: MINERAL OIL 30ML BOTTLE PO SCH ×2 (09:04→17:23)
[2022-08-24] MEDS: DOCUSATE SODIUM 250MG CAPSULE PO SCH ×2 (09:04→17:23)
[2022-08-24] MEDS: ASPIRIN 81MG TABLET PO SCH (09:04)
[2022-08-24] MEDS: FAMOTIDINE 20MG TABLET PO SCH (09:04)
[2022-08-24] MEDS: FERROUS SULFATE 300MG/5ML UDC PO SCH ×2 (09:04→17:23)
[2022-08-24] MEDS: CALCIUM ACETATE 667MG CAPSULE PO SCH ×3 (09:04→17:23)
[2022-08-24] MEDS: BACITRACIN 15GM TUBE TOP SCH ×2 (09:05→17:29)
[2022-08-24] MEDS: MIDODRINE HCL 5MG TABLET PO SCH ×3 (09:05→17:24)
[2022-08-24] MEDS ORDERED: SODIUM BICARBONATE 8.4% 1 MEQ/ML 50ML SYR IV NR (09:15)
[2022-08-24] MEDS: VASOPRESSIN 20 UNIT in SODIUM CHLORIDE 0.9% 99 ML IV PRN ×2 (09:38→22:40)
[2022-08-24] MEDS ORDERED: CALCIUM CHLORIDE 5,000 MG in DEXT 5% WATER 500 ML IV NR (11:00)
[2022-08-24] MEDS: MEROPENEM 1,000 MG in SODIUM CHLORIDE 0.9% 100 ML IV SCH (20:14)
[2022-08-24] MEDS: ATORVASTATIN CALCIUM 40MG TABLET PO SCH (22:14)
[2022-08-25] VITALS (25 sets, daily range): BP systolic 70–114; BP diastolic 36–76
[2022-08-25] MEDS: INSULIN LISPRO 100 UNITS/ML SUBCUT SCH ×2 (01:04→06:00)
[2022-08-25] MEDS: IPRATROPIUM BROMIDE (0.02%) 0.5MG/2.5ML NEB HHN SCH (01:23)
[2022-08-25] MEDS: NOREPINEPHRINE 32 MG in DEXT 5% WATER 218 ML IV PRN (02:43)
[2022-08-25] MEDS: PHENYLEPHRINE 100 MG in DEXT 5% WATER 240 ML IV PRN (02:44)
[2022-08-25] MEDS: BLOOD SUGAR DIAGNOSTIC STRIP TEST SCH ×2 (06:00)
== END 2022-08-25 07:25 | DRG 165 ==
LOC: ER 21:11 → 8WST 08-05 02:16 → CVICU 08-08 17:52 → 3WST 08-18 21:14 → CVICU 08-21 18:15
PROVIDERS: ADMIT Internal Medicine; ATTEND Internal Medicine
PROC: 4A023N7 Measurement of Cardiac Sampling and Pressure, Left Heart, Percutaneous Approach (ICD-10-PCS; 2022-08-08)
PROC: B2111ZZ Fluoroscopy of Multiple Coronary Arteries using Low Osmolar Contrast (ICD-10-PCS; 2022-08-08)
PROC: 021009W Bypass Coronary Artery, One Artery from Aorta with Autologous Venous Tissue, Open Approach (ICD-10-PCS; principal; 2022-08-12)
PROC: 02100Z9 Bypass Coronary Artery, One Artery from Left Internal Mammary, Open Approach (ICD-10-PCS; 2022-08-12)
PROC: 06BQ4ZZ Excision of Left Saphenous Vein, Percutaneous Endoscopic Approach (ICD-10-PCS; 2022-08-12)
PROC: 30233N1 Transfusion of Nonautologous Red Blood Cells into Peripheral Vein, Percutaneous Approach (ICD-10-PCS; 2022-08-14)
PROC: 02HV33Z Insertion of Infusion Device into Superior Vena Cava, Percutaneous Approach (ICD-10-PCS; 2022-08-15)
PROC: B548ZZA Ultrasonography of Superior Vena Cava, Guidance (ICD-10-PCS; 2022-08-15)
PROC: 5A1D70Z Performance of Urinary Filtration, Intermittent, Less than 6 Hours Per Day (ICD-10-PCS; 2022-08-15)
PROC: 5A1D70Z Performance of Urinary Filtration, Intermittent, Less than 6 Hours Per Day (ICD-10-PCS; 2022-08-16)
PROC: 5A1D70Z Performance of Urinary Filtration, Intermittent, Less than 6 Hours Per Day (ICD-10-PCS; 2022-08-17)
PROC: 5A1D70Z Performance of Urinary Filtration, Intermittent, Less than 6 Hours Per Day (ICD-10-PCS; 2022-08-19)
PROC: 5A1D70Z Performance of Urinary Filtration, Intermittent, Less than 6 Hours Per Day (ICD-10-PCS; 2022-08-20)
PROC: 5A1945Z Respiratory Ventilation, 24-96 Consecutive Hours (ICD-10-PCS; 2022-08-21)
PROC: 0BH17EZ Insertion of Endotracheal Airway into Trachea, Via Natural or Artificial Opening (ICD-10-PCS; 2022-08-21)
PROC: 5A12012 Performance of Cardiac Output, Single, Manual (ICD-10-PCS; 2022-08-21)
PROC: 06HY33Z Insertion of Infusion Device into Lower Vein, Percutaneous Approach (ICD-10-PCS; 2022-08-21)
PROC: B54CZZA Ultrasonography of Left Lower Extremity Veins, Guidance (ICD-10-PCS; 2022-08-21)
PROC: 02HV33Z Insertion of Infusion Device into Superior Vena Cava, Percutaneous Approach (ICD-10-PCS; 2022-08-21)
PROC: B548ZZA Ultrasonography of Superior Vena Cava, Guidance (ICD-10-PCS; 2022-08-21)
DX: I13.2 Hypertensive heart and chronic kidney disease with heart failure and with stage 5 chronic kidney disease, or end stage renal disease (principal); N17.0 Acute kidney failure with tubular necrosis; J96.01 Acute respiratory failure with hypoxia; A41.50 Gram-negative sepsis, unspecified; G93.41 Metabolic encephalopathy; J44.0 Chronic obstructive pulmonary disease with (acute) lower respiratory infection; J18.9 Pneumonia, unspecified organism; D63.1 Anemia in chronic kidney disease; D68.9 Coagulation defect, unspecified; E83.51 Hypocalcemia; J44.9 Chronic obstructive pulmonary disease, unspecified; T80.211A Bloodstream infection due to central venous catheter, initial encounter; I50.23 Acute on chronic systolic (congestive) heart failure; I25.10 Atherosclerotic heart disease of native coronary artery without angina pectoris; I31.39 Other pericardial effusion (noninflammatory); R65.20 Severe sepsis without septic shock; N18.6 End stage renal disease; I46.9 Cardiac arrest, cause unspecified; Z68.41 Body mass index [BMI] 40.0-44.9, adult; I42.9 Cardiomyopathy, unspecified; E11.22 Type 2 diabetes mellitus with diabetic chronic kidney disease; Z20.822 Contact with and (suspected) exposure to COVID-19; E11.51 Type 2 diabetes mellitus with diabetic peripheral angiopathy without gangrene; E66.9 Obesity, unspecified; E78.5 Hyperlipidemia, unspecified; E87.5 Hyperkalemia; I34.0 Nonrheumatic mitral (valve) insufficiency; I49.3 Ventricular premature depolarization; Z66 Do not resuscitate; G62.9 Polyneuropathy, unspecified; J45.909 Unspecified asthma, uncomplicated; F12.90 Cannabis use, unspecified, uncomplicated; E11.42 Type 2 diabetes mellitus with diabetic polyneuropathy; E87.1 Hypo-osmolality and hyponatremia; G24.01 Drug induced subacute dyskinesia; Z98.61 Coronary angioplasty status; Z99.2 Dependence on renal dialysis; Z88.0 Allergy status to penicillin; Z95.1 Presence of aortocoronary bypass graft; I25.2 Old myocardial infarction; Z88.8 Allergy status to other drugs, medicaments and biological substances; Z79.899 Other long term (current) drug therapy; Z87.891 Personal history of nicotine dependence; Z99.11 Dependence on respirator [ventilator] status; Z99.81 Dependence on supplemental oxygen; Y84.8 Other medical procedures as the cause of abnormal reaction of the patient, or of later complication, without mention of misadventure at the time of the procedure
CPT/HCPCS: 31500; 36415; 36556; 36573; 36600; 71045; 76770; 76857; 76937; 80048; 80053; 80061; 80202; 80305; 81003; 82375; 82570; 82607; 82805; 82962; 83036; 83540; 83550; 83735; 83880; 84100; 84132; 84145; 84156; 84166; 84484; 85025; 85027; 85347; 86705; 86706; 86709; 86803; 86850; 86900; 86920; 87070; 87077; 87186; 87340; 87426; 87804; 90935; 92610; 93005; 93306; 93308; 93458; 93880; 93923; 93970; 94002; 94003; 94640; 97110; 97162; 97166; 97530; 97535; 99285; A6261; C1725; C1729; C1751; C1752; C1758; C1769; C1887; C1893; C9803; J0610; J0690; J0692; J0696; J0885; J1100; J1250; J1265; J1580; J1642; J1644; J1650; J1815; J1940; J2185; J2250; J2270; J2370; J2405; J2440; J2710; J3010; J3370; J3430; J3490; J7030; J7050; J7060; J7070; L3908; P9016; P9047; Q9967; A4315